=== PATIENT | male | born 1945 | race Caucasian/White ===

== ENCOUNTER 2017-02-24 20:55 | Emergency (ER) | payer MEDICARE, OTHER ==
[2017-02-24 23:16] LABS: APPEARANCE CLOUDY (CLEAR); BILIRUBIN NEGATIVE (NEGATIVE); COLOR RED (YELLOW); GLUCOSE NEGATIVE (NEGATIVE); KETONE NEGATIVE (NEGATIVE); NITRITE NEGATIVE (NEGATIVE); PROTEIN 2+ mg/dL (NEGATIVE); SPECIFIC GRAVITY 1.015 (1.005-1.020); UROBILINOGEN NORMAL (NORMAL)
[2017-02-24 23:19] LABS: BACTERIA MODERATE /hpf (NONE SEEN); EPITHELIAL CELLS 0-5 /hpf (0-5); RED CELLS - URINE >50 /hpf (0-5)
== END 2017-02-25 00:08 | disposition home or self-care (01) ==
LOC: D.ER 20:55
PROVIDERS: Emergency Medicine
DX: R31.9 Hematuria, unspecified (principal); N39.0 Urinary tract infection, site not specified; R33.9 Retention of urine, unspecified; N40.0 Benign prostatic hyperplasia without lower urinary tract symptoms; F17.200 Nicotine dependence, unspecified, uncomplicated

== ENCOUNTER 2017-02-28 23:52 | Emergency (ER) | payer MEDICARE, OTHER | END 2017-03-01 01:45 | disposition home or self-care (01) | LOC: D.ER 23:52 | DX: R33.9 Retention of urine, unspecified (principal); F17.200 Nicotine dependence, unspecified, uncomplicated ==

== ENCOUNTER 2017-04-01 19:55 | Emergency (ER) | payer MEDICARE, OTHER ==
[2017-04-01 22:20] LABS: APPEARANCE CLOUDY (CLEAR); BILIRUBIN NEGATIVE (NEGATIVE); COLOR RED (YELLOW); GLUCOSE NEGATIVE (NEGATIVE); KETONE NEGATIVE (NEGATIVE); NITRITE NEGATIVE (NEGATIVE); PROTEIN NEGATIVE (NEGATIVE); SPECIFIC GRAVITY 1.005 (1.005-1.020); UROBILINOGEN NORMAL (NORMAL)
[2017-04-01 22:21] LABS: BACTERIA MANY /hpf (NONE SEEN); RED CELLS - URINE >50 /hpf (0-5)
== END 2017-04-01 22:36 | disposition home or self-care (01) ==
LOC: D.ER 19:55
PROVIDERS: Family Medicine
DX: N39.0 Urinary tract infection, site not specified (principal); R33.9 Retention of urine, unspecified; F17.200 Nicotine dependence, unspecified, uncomplicated; I10 Essential (primary) hypertension

== ENCOUNTER 2018-08-08 19:42 | Emergency (ER) | payer MEDICARE, OTHER ==
[~2018-08-08] VITALS: Ht 182.9 cm; Wt 64.5 kg
[2018-08-08 19:48] VITALS: Ht 182.9 cm; Wt 64.5 kg
[2018-08-08] MEDS ORDERED: CIPRO500 MG PO (21:47)
[2018-08-08] MEDS ORDERED: HYDROCODON-ACE1 EAC7 PO (22:39)
[2018-08-08 23:05] VITALS: BP 140/73
== END 2018-08-08 23:05 | disposition home or self-care (01) ==
LOC: D.ER 19:42
DX: N30.90 Cystitis, unspecified without hematuria (principal); T83.018A Breakdown (mechanical) of other urinary catheter, initial encounter

== ENCOUNTER 2018-09-07 06:12 | Inpatient (IN) | payer MEDICARE, OTHER ==
[2018-09-07] VITALS (13 sets, daily range): BP systolic 77–158; BP diastolic 54–98; Ht 182.9 cm; Wt 61.6 kg
[~2018-09-07] VITALS: Ht 182.9 cm; Wt 61.6 kg
--- NOTE | ~2018-09-07 | OP ---
PATIENT NAME: MAE MANN MEDICAL RECORD: [id number] :49 LOCATION:D[id number] ADMISSION DATE:09/07/18 SURGEON: SYLVIA ROBERTSON MD DATE OF OPERATION: 09/09/2018 PREOPERATIVE DIAGNOSES: 1. Huge prostate causing urethral obstruction. 2. Very large bladder containing clots. 3. Liver lesions. Rule out a malignancy. POSTOPERATIVE DIAGNOSES: 1. Huge prostate causing urethral obstruction. 2. Very large bladder containing clots. 3. Liver lesions. Rule out a malignancy. PROCEDURES: I assisted Dr. Lopez with the laparotomy, placement of the suprapubic catheter for continuous bladder irrigation, and the prostate biopsies. I was the surgeon when it came to the subtotal omentectomy and the core biopsies of the liver lesions. My involvement in the portion of the operation that I assisted Dr. Lopez included some retraction, some sharp dissection into the abdomen, manipulation of tissues, removal of some of the clots after the cystotomy was performed, and some suturing. I did perform some core biopsies of the prostate on the left side of the prostate as well as on the prostate superiorly, under Dr. Lopez's instruction. My portion of the operation where I was the operative surgeon includes subtotal omentectomy as well as core biopsies of the liver. I was able to mobilize the right lobe of the liver with my hand. I identified one liver lesion on the convexity of the liver, which appeared to be amenable to core biopsies. The 14-gauge core biopsies were obtained. Numerous biopsies were obtained. The biopsy sites were made hemostatic with electrocautery. No surrounding structures were injured. We have been asked to perform an omentectomy as well as it appeared that the patient has metastatic disease and wanted to prevent omental caking in the future. Additionally, the omentum may contain malignancy; therefore, it needs to be evaluated by the pathologist. I took the SuperJaw EnSeal device and I used this sequentially to take the omentum off of the transverse colon. There was very little bleeding. I would say that I removed about 85% of the omentum during this omentectomy. There was no damage to the colon. I then assisted Dr. Lopez in the closure of the abdomen as well as placement of a drain and placement of a suprapubic catheter. TRANSINT:[id number] Voice Confirmation ID: [id number] DOCUMENT ID: [id number] OPERATIVE REPORT [id number] MAE MANN ROBERT MD CC: SYLVIA LOPEZ MD [id number] DICTATION DATE: 09/25/18 175 FIELD MECHANIC/SITE LEAD: 09/25/18 190 DIS IN 09/23/18 [facility] [address] [place] [id number]
[~2018-09-07 06:12] MED LIST: CIPRO500 MG PO; HYDROCODON-ACE1 EAC7 PO
--- NOTE | 2018-09-07 07:05 | NUR ---
DR. FUENTES NOTIFIED OF LACK OF URINE, LANDRUM CATH CHANGED, 14F LANDRUM INSERTED.
--- NOTE | 2018-09-07 07:06 | NUR ---
REPORT GIVEN TO NORMA MONROY.
[2018-09-07 07:48] LABS: BASOPHILS 0.3 % (0-2); EOSINOPHILS 0.8 % (0-7); HEMATOCRIT 36.5 % (42.0-54.0); HEMOGLOBIN 12.3 g/dL (13.5-17.5); IMMATURE GRANULOCYTES 0.1 % (0-5); MCH 30.1 pg (26.0-34.0); MCHC 33.7 g/dL (31.0-37.0); MCV 89.5 fL (80.0-100.0); MEAN PLATELET VOLUME 10.2 fL (7.4-10.4); MONOCYTES 4.3 % (2-11); NEUTROPHILS 80.5 % (40-80); PLATELET COUNT 188 10x3/uL (130-400); RBC 4.08 10x6/uL (4.20-6.10); RDW 15.2 % (11.5-14.5); WBC 9.3 10x3/uL (4.8-10.8)
[2018-09-07 08:10] LABS: INR 1.07 (0.85-1.17); PROTIME 13.4 SECONDS (11.6-15.0)
[2018-09-07 08:11] LABS: ALBUMIN 2.8 g/dL (3.4-5.0); ALKALINE PHOSPHATASE 73 U/L (46-116); ALT (SGPT) 19 U/L (10-68); BILIRUBIN - TOTAL 0.33 mg/dL (0.2-1.3); CALC OSMOLALITY 290 mosm/kg (275-300); CALCIUM 8.8 mg/dL (8.5-10.1); CARBON DIOXIDE 22.9 mmol/L (21.0-32.0); CHLORIDE - SERUM 106 mmol/L (98-107); CREATININE - SERUM 1.9 mg/dL (0.6-1.3); GLUCOSE 139 mg/dL (74-106); PROTEIN - SERUM 6.4 g/dL (6.4-8.2); SODIUM 142 mmol/L (136-145); UREA NITROGEN 28 mg/dL (7-18); eGFR NON AFRICAN AMERICAN 37 mL/min (90-120)
[2018-09-07 08:18] LABS: APTT 23.5 SECONDS (22.8-39.4)
[2018-09-07 08:24] LABS: CKMB 1.7 U/L (0.0-3.6); CREATINE KINASE 107 UL (21-232)
[2018-09-07 08:25] LABS: TROPONIN-I < 0.017 ng/mL (0.000-0.060)
--- NOTE | 2018-09-07 10:16 | NUR ---
MULTIPLE ATTEMPTS TO MANUALLY IRRIGATE BLADDER UNSUCCESSFUL. PT CONTINUES IN PAIN D/T DISTENDED BLADDER. CBI SUPPLIES REQUESTED FORM CENTRAL SUPPLY. DR. LOPEZ CONTACTED. PLAN TO TAKE PT FOR CYSTOSCOPY IF WE ARE UNABLE TO DRAIN BLADDER. REPORT CALLED TO ICU, SIDEROGRAPHIST AWARE OF NEED FOR CBI ET IF UNSUCCESSFULL, PLAN FOR CYSTOSCOPY.
--- NOTE | 2018-09-07 10:45 | NUR ---
PT ARRIVED ON UNIT VS STATED HR 111, BP 158/97 RR 48 COPIOUS AMOUNTS OF BLOOD IN URINE NOTED. DR LOPEZ PAGED GIVEN UPDATE, STATED PT WOULD HAVE TO WAIT UNTIL OR TIME IS AVAILABLE THIS EVENING.
--- NOTE | 2018-09-07 11:00 | NUR ---
U/S AT BEDSIDE. DR MARX AT BEDSIDE GIVEN UDPATE. NEW ORDERS RECEIVED.
[2018-09-07 11:17] LABS: % SATURATION 19 % (15-55); IRON 55 ug/dl (35-150); TOTAL IRON BIND CAPACITY 278 ug/dl (260-445); UNSAT IRON BIND CAPACITY 223 ug/dl (150-375)
--- NOTE | 2018-09-07 11:20 | NUR ---
DR LOPEZ AT BEDSIDE. NEW ORDERS RECEIVED
--- NOTE | 2018-09-07 11:40 | NUR ---
ANESTHESIA AT BEDSIDE GIVEN UDPATE. PT TO OR AT THIS TIME.
--- NOTE | 2018-09-07 12:10 | NUR ---
VIKKI CALLED GIVEN UPDATE
--- NOTE | 2018-09-07 13:37 | NUR ---
300CC OF BLOODY DRAINAGE TO LANDRUM BAG ON ADMIT
--- NOTE | 2018-09-07 13:48 | OP ---
PATIENT NAME: MAE MANN MEDICAL RECORD: [id number] :49 LOCATION:[facility] D.2304 ADMISSION DATE:09/07/18 SURGEON: AL LOPEZ MD DATE OF OPERATION: 09/07/2018 SURGEON: Al Lopez MD ANESTHESIA: TIVA by Consuelo Porras CRNA DIAGNOSES: Urinary retention with bilateral hydronephrosis and acute renal failure. Massively enlarged prostate with possible prostate cancer, metastatic cancer in the liver. PROCEDURES: Cystoscopy, 18-Moldovan suprapubic tube insertion under ultrasound guidance, and bladder clot evacuation. FINDINGS: On cystoscopy, massive prostate with multiple false passages. Unable to find the urethral lumen. Massively enlarged prostate, fills out most of the pelvis. The bladder was displaced up to the umbilical level. Large numbers of blood clots filling the bladder. ESTIMATED BLOOD LOSS: Minimal. CLINICAL HISTORY: This is a 72-year-old male who came through the Emergency Room with acute pain from being unable to void. He was found to have acute renal failure with creatinine of 1.9. CT scan showed bilateral hydroureteronephrosis with massively enlarged prostate. The ER nurses attempted to place a Forde catheter. Ultrasound in the intensive care unit showed that the Forde catheter balloon was actually within the prostate. I therefore asked that the Forde catheter that was placed in the Emergency Room be removed. He will be brought to the OR for an attempt at cystoscopy to get a catheter in the patient. He was already given vancomycin and meropenem in the Emergency Room. No further antibiotics were given to the patient here. DESCRIPTION OF PROCEDURE: The patient was given IV sedation. He was then placed into the lithotomy position. A 21-Moldovan cystoscope with 30-degree lens was used for visualization. No urethral strictures were seen. The prostatic urethra shows multiple false passages. I can see an indentation in the mid prostatic urethra, where the Forde balloon had been inflated. Beyond this, there were multiple false passages and cross healing. I attempted with a guidewire to find the true lumen, but I was unsuccessful at finding the true lumen. I decided to abandon further attempts at cystoscopy and insert a suprapubic catheter. Initially, I landmarked 2 fingerbreadths above the symphysis pubis and then placed the trocar for the suprapubic tube. I could not find the bladder. After few attempts at this including attempts to put contrast down to find the bladder, and using fluoroscopy, I asked for ultrasound. Ultrasonography revealed that the bladder was displaced cranially by quite a significant amount as most of the pelvis was filled with his massive prostate. In fact, the ideal location for inserting the tube was actually just superior to the umbilicus. At this point, a small stab incision was made and the trocar was placed in under direct ultrasound vision. I could verify that the trocar tip was actually within the bladder under ultrasound. The sheath was left in while the trocar itself was removed. An 18-Moldovan catheter was then inserted into the bladder and the balloon was inflated under ultrasound vision. Large mobile clots were seen within the bladder. The catheter was put to the [place] OPERATIVE REPORT [id number] MAE MANN and we suctioned out most of the blood clots. I also put in bladder irrigation with normal saline using a catheter tip syringe for about 200 mL and then suctioned out more clots. This process was repeated about 5 or 6 times until virtually all the clots were evacuated from the bladder. I will repeat an ultrasound to see if there is persistent hydronephrosis after drainage of the bladder. If the hydronephrosis persists, then he will need bilateral nephrostomy tubes. TRANSINT:[id number] Voice Confirmation ID: [id number] DOCUMENT ID: [id number] AL LOPEZ MD at 1348 CC: [id number] DICTATION DATE: 09/07/18 1321 LOGISTICS LEAD: 09/07/18 1338 ADM IN [facility] [address] [place] [address]
--- NOTE | 2018-09-07 14:20 | NUR ---
PT BACK FROM OR VSS. LANDRUM TO GRAVITY. VIKKI AT BEDSIDE GIVEN UDPATE.
--- NOTE | 2018-09-07 17:40 | NUR ---
PT HR 35 BP 70/54 STERNAL RUB ADM PT HR BACK UP ALERT ORIENTED STAT H&H ORDERED BLOOD SUGAR ADM 145 BLADDER SCAN ADM [address] LOPEZ CALLED GIVEN UPDATE. STATED TO IRRIGATE LANDRUM AT THIS TIME BLADDER SCANNER WOULD NOT BE ACCURATE.
--- NOTE | 2018-09-07 18:10 | NUR ---
STAT h8h READ BACK DR LOPEZ CALLED GIVEN UPDATE 2 U PRBC ORDERED.
--- NOTE | 2018-09-07 18:20 | NUR ---
DR MARX CALLED GIVEN UPDATE. NEW ORDERS RECEIVED. WILL ADM.
[2018-09-07 18:28] LABS: HEMATOCRIT 26.7 % (42.0-54.0); HEMOGLOBIN 8.9 g/dL (13.5-17.5)
--- NOTE | 2018-09-07 18:40 | NUR ---
LOGAN GORDON AT BEDSIDE ASSIST WITH LANDRUM IRRIGATION. MULTIPLE CLOTS NOTED. MINIMAL RETURN FROM FLUSH NOTED.
[2018-09-07 19:31] LABS: HEMATOCRIT 24.5 % (42.0-54.0); HEMOGLOBIN 8.1 g/dL (13.5-17.5)
--- NOTE | 2018-09-07 19:40 | NUR ---
PT RECEIVED WITH FAMILY AT BEDSIDE. SUPRA PUBIC CATHETER DRAINING BLOOD AND DR AWARE. VSS. WILL CONTINUE TO OBSERVE.
[2018-09-07 19:49] LABS: APTT 24.2 SECONDS (22.8-39.4); INR 1.25 (0.85-1.17); PROTIME 15.1 SECONDS (11.6-15.0)
--- NOTE | 2018-09-07 21:10 | NUR ---
PT OUT TO CT AND RETURNED TO UNIT. CT OF PELVIS AND ABDOMEN. PT TRANSFERRED TO CT TABLE AND BACK TO BED WITHOUT DIFFICULTY OR COMPLAINTS. DR ROBERTSON LOOKING AT RESULTS AND PT LEAVING RETURNING TO ICU. LANDRUM FLUSHED WITHONLY FLUSH RETURNED WITH BLOOD SLOWLY DRAINING. FREQUENT FLUSHING NEEDED.
--- NOTE | 2018-09-07 23:15 | NUR ---
REASSESSMENT COMPLETED, SEE FLOW SHEET. LANDRUM FLUSHED. WILL CONTINUE TO OBSERVE.
[2018-09-08] VITALS (27 sets, daily range): BP systolic 88–162; BP diastolic 51–90
--- NOTE | 2018-09-08 02:05 | NUR ---
DR LOPEZ INFORMED OF PT STATUS. ORDER RECEIVED FOR PAIN MED. PT IN PAIN 12/29. WILL TAKE TO OR IN MORNING.
--- NOTE | 2018-09-08 03:55 | NUR ---
REASSESSMENT COMPLETED, SEE FLOW SHEET. PT RESTING WITH EYES CLOSED, EASILY AWOKEN TO VERBAL STIMULI. WILL CONTINUE TO OBSERVE.
[2018-09-08 04:32] LABS: BASOPHILS 0.1 % (0-2); EOSINOPHILS 0 % (0-7); IMMATURE GRANULOCYTES 0.2 % (0-5); LYMPHOCYTES 4.7 % (15-50); MCH 30.2 pg (26.0-34.0); MCHC 33.6 g/dL (31.0-37.0); MCV 89.7 fL (80.0-100.0); MEAN PLATELET VOLUME 10.2 fL (7.4-10.4); MONOCYTES 5.5 % (2-11); NEUTROPHILS 89.5 % (40-80); PLATELET COUNT 156 10x3/uL (130-400); RBC 3.58 10x6/uL (4.20-6.10); RDW 14.7 % (11.5-14.5)
[2018-09-08 04:53] LABS: ALBUMIN 2.4 g/dL (3.4-5.0); ALKALINE PHOSPHATASE 56 U/L (46-116); ALT (SGPT) 19 U/L (10-68); BILIRUBIN - TOTAL 0.43 mg/dL (0.2-1.3); CALC OSMOLALITY 291 mosm/kg (275-300); CALCIUM 7.9 mg/dL (8.5-10.1); CHLORIDE - SERUM 109 mmol/L (98-107); GLUCOSE 132 mg/dL (74-106); MAGNESIUM - SERUM 1.8 mg/dL (1.8-2.4); PHOSPHOROUS 4.6 mg/dL (2.5-4.9); PROTEIN - SERUM 5.3 g/dL (6.4-8.2); SODIUM 142 mmol/L (136-145); TROPONIN-I < 0.017 ng/mL (0.000-0.060); UREA NITROGEN 33 mg/dL (7-18)
[2018-09-08 04:54] LABS: HEMOGLOBIN 10.8 g/dL (13.5-17.5); WBC 12.3 10x3/uL (4.8-10.8)
[2018-09-08 04:55] LABS: HEMATOCRIT 32.1 % (42.0-54.0)
[2018-09-08 04:56] LABS: CREATININE - SERUM 2.8 mg/dL (0.6-1.3); POTASSIUM - SERUM 5.6 mmol/L (3.5-5.1); eGFR NON AFRICAN AMERICAN 24 mL/min (90-120)
[2018-09-08 05:00] LABS: INR 1.18 (0.85-1.17); PROTIME 14.5 SECONDS (11.6-15.0)
--- NOTE | 2018-09-08 07:00 | NUR ---
SHIFT ASSESSMENT COMPLETED. PT CARE ASSUMED. MONITORS ON AND WORKING, VITALS STABLE, NO SIGNS/SYMPTOMS OF PAIN OR DISCOMFORT NOTED AT THIS TIME, PT AWAKE AND ALERT, SEE FLOW SHEET FOR FURTHER OPTIONS, WILL CONITNUE TO OBSERVE.
--- NOTE | 2018-09-08 09:00 | NUR ---
FAMILY AT BEDSIDE, UPDATE PROVIDED, PT AWAKE AND ALERT, NO SIGNS/SYMPTOMS OF PAIN OR DISCOMFORT NOTED AT THIS TIME, CALL LIGHT WITHIN REACH, MONITORS ON AND WORKING, VITALS STABLE, NO SIGNS/SYMPTOMS OF PAIN OR DISCOMFORT NOTED AT THIS TIME, WILL CONTINUE TO OBSERVE.
--- NOTE | 2018-09-08 11:00 | NUR ---
PT AWAKE AND ALERT, IRRIGATE SUPRA PUBIC CATH OFTEN PER DR LOPEZ.MONITORS ON AND WORKING, VITALS STABLE, NO SIGNS/SYMPTOMS OF PAIN OR DISCOMFORT NOTED AT THIS TIME, CALL LIGHT WITHIN REACH, SEE FLOW SHEET FOR FURTHER DETIALS, WILL CONTINUE TO OBSERVE.
--- NOTE | 2018-09-08 13:00 | NUR ---
FAMILY AT BEDSIDE, UPDATE PROVIDED, NO SIGNS/SYMPTOMS OF PAIN OR DISCOMFORT NOTED AT THIS TIME, WILL CONTINUE TO OBSERVE.
--- NOTE | 2018-09-08 15:00 | NUR ---
MONITORS ON AND WORKING, CONTINUE TO IRRIGATE LANDRUM OFTEN PER DR LOPEZ. CALL LIGHT WITHIN REACH, SEE FLOW SHEET FOR FURTHER DETAILS. WILL CONTINUE TO OBSERVE.
[2018-09-08 16:09] LABS: FOLATE (FOLIC ACID) - SERUM 8.8 ng/mL (>3.0)
[2018-09-08 16:48] LABS: HEMOGLOBIN 8.5 g/dL (13.5-17.5)
[2018-09-08 16:49] LABS: HEMATOCRIT 24.8 % (42.0-54.0)
--- NOTE | 2018-09-08 17:00 | NUR ---
DR LOPEZ AT BEDSIDE SPEAKING WITH PT AND FAMILY. PT COMPLAINING OF PAIN, PRN DILAUDED GIVEN. LANDRUM IRRIGATED, MONITORS ON AND WORKING, VITALS STABLE. WILL CONTINUE TO OBSERVE.
--- NOTE | 2018-09-08 19:00 | NUR ---
ASSESSMENT COMPLETED PER FLOWSHEETS. PT A/O X4, C/O PAIN TO ABD 4 ON SCALE FROM 0 TO 10, ST ON CM WITH HR AT 113, 1ST UNIT OF PRBC TRANSFUSING WITHOUT ANY S/S OF TRANSFUSION REACTION. SUPRAPUBIC CATH TO GRAVITY WITH BLOODY DRAINAGE . LANDRUM IRRIGATED WITH STERILE NS PER ORDER. PT CHANTE WELL. CLOTS RETURNS TO DRAINAGE. PPP. WILL CONT TO MONITOR.
--- NOTE | 2018-09-08 19:17 | MORECARE ---
CASE MANAGEMENT DISCHARGE SUMMARY PATIENT: MAE MANN UNIT: [id number] ADM DATE: 09/07/18 AGE: 72 : [birth year] SEX: M ROOM/BED: D.2304 AUTHOR: HARMAN,DOC PHYSICIAN: REFERRING PHYSICIAN: CHELSIE MARX MD DATE OF SERVICE: 09/08/18 Discharge Plan Patient Name: MAE MANN Facility: [facility]:[place] : 1945 Planned Disposition: Home Anticipated Discharge Date: Discharge Date: Expected LOS: Initial Reviewer: [email or web address] Initial Review Date: 09/07/2018 Generated: 09/08/18 8:17 pm Comments DCP- Discharge Planning Updated by [id number]: Elizabeth Sandy on 09/08/18 6:[address] Patient Name: MAE MANN Admission Status: ER Accout number: [id number] Admission Date: 09-07-2018 : 1945 Admission Diagnosis: Attending: CHELSIE MARX Current LOS: 1 Anticipated DC Date: Planned Disposition: Home Primary Insurance: MEDICARE A & B Discharge Planning Comments: CM met with patient at bedside after explaining CM role and obtaining verbal consent. Patient lives at home with his Vikki and plans to return there upon discharge. Patient feels this would be a safe discharge. CM discussed availability / needs of home health and medical equipment. Patient denies any discharge needs at this time. Patient states he will have his drive him home upon discharge. CM will continue to follow and assist as needed with discharge planning / needs. Shop Clerk: Elizabeth Sandy DCP- Discharge Planning Updated by [email or web address]: Elizabeth Sandy on 09/07/18 4:[address] CM attempted to see patient for discharge planning but patient is currently in OR no family available at this time. CM will continue to follow and assist as needed with discharge planning / needs. DCPIA - Discharge Planning Initial Assessment Updated by [id number]: Elizabeth Sandy on 09/08/18 7:14 pm * Is the patient Alert and Oriented? Yes * How many steps to enter\exit or inside your home? * PCP FRANKY ANTONIO APN * Pharmacy [facility] * Preadmission Environment Home with Family * ADLs Independent * Equipment None * List name and contact numbers for known caregivers / representatives who currently or will assist patient after discharge: VIKKI MANN - - [phone] * Verbal permission to speak to the caregivers and representatives has been obtained from the patient. N/A * Community resources currently utilized None * Additional services required to return to the preadmission environment? No * Can the patient safely return to the preadmission environment? Yes * Has this patient been hospitalized within the prior 30 days at any hospital? No Patient Name: MAE MANN Page [phone] at 191 All edits/amendments must be made on the electronic document DICTATION DATE: 09/08/181916 CORDWOOD CUTTER HELPER: SRINIVAS 09/08/181916 RPT#: [id number] DC DATE: STATUS: ADM IN [facility] [address] [place] [address] END OF REPORT
[2018-09-08 20:48] LABS: INR 1.35 (0.85-1.17); PROTIME 16.1 SECONDS (11.6-15.0)
--- NOTE | 2018-09-08 21:00 | NUR ---
1ST PRBC CONT TO TRANSFUSING, NO S/S OF REACTION NOTED. VSS.
--- NOTE | 2018-09-08 23:00 | NUR ---
REASSESSMENT COMPLETED PER FLOWSHEETS. PT C/O PAIN, PAIN MED GIVEN PER ORDER. NO ACUTE CHANGES NOTED IN PT'S STATUS AT THIS TIME. REPOSITIONED FOR COMFORT. IRRIGATED CATH PER PT'S. REQUEST. CHANTE WELL. BLOOD CLOTS RETURNING NOTED. WILL CONT TO MONITOR.
[2018-09-09] VITALS (30 sets, daily range): BP systolic 95–199; BP diastolic 50–105
--- NOTE | 2018-09-09 01:00 | NUR ---
PT RESTING QUIETLY WITHOUT DISTRESS. 2ND PRBC CONT TRANSFUSING. NO S/S OF TRANSFUSION NOTED. VSS.
--- NOTE | 2018-09-09 03:00 | NUR ---
REASSESSMENT COMPLETED PER FLOWSHEETS. VSS.
[2018-09-09 05:23] LABS: HEMATOCRIT 28.5 % (42.0-54.0); HEMOGLOBIN 9.5 g/dL (13.5-17.5); MCH 30.4 pg (26.0-34.0); MCHC 33.3 g/dL (31.0-37.0); MCV 91.1 fL (80.0-100.0); MEAN PLATELET VOLUME 10.3 fL (7.4-10.4); PLATELET COUNT 148 10x3/uL (130-400); RBC 3.13 10x6/uL (4.20-6.10); RDW 15.5 % (11.5-14.5); WBC 21.3 10x3/uL (4.8-10.8)
[2018-09-09 05:32] LABS: CALCIUM 8.2 mg/dL (8.5-10.1)
[2018-09-09 05:38] LABS: CREATININE - SERUM 4.2 mg/dL (0.6-1.3)
[2018-09-09 05:45] LABS: EOSINOPHILS 1 % (0-7); LYMPHOCYTES 5 % (15-50); MONOCYTES 9 % (2-11); NEUTROPHILS 85 % (40-80)
[2018-09-09 05:46] LABS: PLATELET ESTIMATE NORMAL
--- NOTE | 2018-09-09 06:00 | NUR ---
BATH GIVEN. LINEN CHANGED. ABD DRESSING CHANGED. CATH IRRIGATED. PT CHANTE WELL.VSS.
--- NOTE | 2018-09-09 07:30 | NUR ---
REPORT RECEIVED. PT RESTING QUIETLY. HAS SUPRAPUBIC CATH WITH NOTED BLOODY URINE AND CLOTS. DRESSING TO ABD. VSS. O2 AT 3L. PT IS NPO FOR PROCEDURE TODAY. BED IN LOWEST POSITION. SIDE RAILS UP X2. CALL LIGHT IN REACH.
--- NOTE | 2018-09-09 08:30 | NUR ---
IRRIGATED SUPRAPUBIC CATH WITH 40ML OF WATER. PULLED BACK CLOTS AND BLOOD (ABOUT 60ML). PT STATED HE FELT INSTANT RELIEF. WILL CONTINUE TO MONITOR.
--- NOTE | 2018-09-09 09:24 | NUR ---
UPDATED FAMILY AT BEDSIDE. VSS. PT DENIES PAIN. VANC INFUSING AT THIS TIME. NO OTHER NEEDS AT THIS TIME.
--- NOTE | 2018-09-09 10:01 | NUR ---
NUTRITION F//U PT REMAINS NPO AT THIS TIME. S/P PROCEDURE. WILL PROVIDE DIET WHEN RESUMED, MONITOR PO INTAKE. RD FOLLOWING
--- NOTE | 2018-09-09 11:15 | NUR ---
22 GAUGE IV PLACED TO LEFT HAND AND 20 GAUGE PLACED TO RIGHT UPPER ARM BY VASCULAR ACCESS NURSE, PATIENCE. CALLED SURGERY FOR UPDATE FOR WHEN PT WOULD HAVE HIS SURGERY. STATED THAT DR LOPEZ WAS STILL WORKING ON HIS 1ST CASE AND THAT MR MACKENZIE WAS NEXT ON HIS LIST. UPDATED PT AND HIS .
--- NOTE | 2018-09-09 13:12 | NUR ---
IRRIGATED SUPRAPUBIC CATH WITH 60ML OF WATER. GOT ABOUT 90ML OF BLOODY URINE AND CLOTS IN RETURN.
--- NOTE | 2018-09-09 13:42 | NUR ---
NURSE SUPERVISOR VENEER IN SPEAKING WITH PT AND FAMILY. PUTTING IN PREOP ORDERS AND MEDS.
--- NOTE | 2018-09-09 15:39 | NUR ---
LEFT CVL PLACED BY DR ALLRED. 2MG OF VERSED GIVEN PER ORDER. CHEST XRAY ORDERED.
--- NOTE | 2018-09-09 17:25 | NUR ---
PT TAKEN DOWN TO OR FOR SURGERY.
--- NOTE | 2018-09-09 19:45 | NUR ---
REC'D PT FROM OR BACK TO ROOM 2304 ACCOMPANIED BY OR STAFF, PT ON VENT VIA 8.0 ETT TAPED @ 22CM LIPLINE SEE FLOWSHEET FOR VENT SETTINGS, PT SEDATED ON VENT, BILAT SOFT WRIST RESTRAINTS APPLIED, LEFT HAND PIV SALINE LOCKED, LEFT DLSCL DRSG CDI SALINE LOCKED, LEFT NARE NGT SECURED WITH NGT MCKINLEY AND PLACED TO LIWS, CM-SR, RIGHT UPPER ARM PIV WITH LR @ 10CC/HR, ABDOMINAL DRSG CDI, LEFT UPPER ABD RADHA DRAIN COMPRESSED WITH SANGUINOUS DRAINAGE, SUPRAPUBIC CATH WITH LANDRUM IRRIGATION OF NS, PPP, BILAT SOFT WRIST RESTRAINTS APPLIED, SR UP X 2, VISIBLE TO NURSES STATION.
--- NOTE | 2018-09-09 20:15 | NUR ---
DR. LOPEZ AT , NO NEW ORDERS AT THIS TIME.
--- NOTE | 2018-09-09 20:20 | NUR ---
DR. JAIRO HOFFMAN FOR CONSULT.
--- NOTE | 2018-09-09 20:30 | NUR ---
PT'S PHONED FOR UPDATE, UPDATE PROVIDED AND QUESTIONS ANSWERED.
--- NOTE | 2018-09-09 20:35 | NUR ---
SPOKE WITH DR. GILL REGARDING CONSULT, NEW ORDERS REC'D AND PLACED IN COMPUTER.
--- NOTE | 2018-09-09 20:50 | NUR ---
FENTANYL PLACED TO RIGHT UPPER ARM PIV @ 25MCG/HR, LR INCREASED TO 125CC/HR PER ORDER, PT RESTING EYES CLOSED, BP ELEVATED, WILL MONITOR CLOSELY FOR CHANGES.
--- NOTE | 2018-09-09 21:30 | NUR ---
CM- UCAF NOTED ON MONITOR AT A RATE OF 154, PT AWAKE ATTEMPTING TO TALK AROUND ETT, EXPLAINED TO PT HE COULD ONLY NOD HEAD YES AND NO, RESP RATE 27, DIPRIVAN BEGUN @ 15MCG/KG/MIN AND FENTANYL INCREASED TO 50MCG/HR, BP TRENDING DOWN, WILL MONITOR CLOSELY FOR CHANGES.
--- NOTE | 2018-09-09 21:50 | NUR ---
RHYTHM CHANGE NOTED ON MONITOR PT NOW ST @ 120, BP 156/78
--- NOTE | 2018-09-09 21:55 | NUR ---
LOGAN CHAVEZ APN FOR DR. MARX ON UNIT, INFORMED OF BRIEF RHYTHM CHANGE AND CONVERSION BACK TO ST @ 120, NO NEW ORDERS REC'D AT THIS TIME.
--- NOTE | 2018-09-09 23:30 | NUR ---
REASSESSMENT COMPLETED, PT RESTING EYES CLOSED ON VENT, VSS, CM-SR @ 85, LANDRUM IRRIGATION CONTINUES WITHOUT DIFFICULTY, WILL MONITOR CLOSELY FOR CHANGES.
[2018-09-10] VITALS (25 sets, daily range): BP systolic 97–164; BP diastolic 58–87
--- NOTE | 2018-09-10 02:00 | NUR ---
PT RESTLESS IN BED WHEN ASKED IF HURTING NODS HEAD YES, 2MG DILAUDID GIVEN SLOW IVP FOR PAIN, BP 124/77, REMAINS VISIBLE TO NURSES STATION.
--- NOTE | 2018-09-10 04:00 | NUR ---
PT RESTING EYES CLOSED, VSS, WILL CONTINUE TO MONITOR CLOSELY FOR CHANGES.
--- NOTE | 2018-09-10 05:15 | NUR ---
AM LAB DRAWN AND SENT TO LAB FROM [facility]
--- NOTE | 2018-09-10 05:45 | NUR ---
DISCREPANCY IN YESTERDAYS LAB VALUES, AM LAB REDRAWN AND SENT TO LAB.
[2018-09-10 06:01] LABS: BASOPHILS 0 % (0-2); EOSINOPHILS 0.1 % (0-7); IMMATURE GRANULOCYTES 0.3 % (0-5); LYMPHOCYTES 6.9 % (15-50); MCH 30.1 pg (26.0-34.0); MCHC 33.9 g/dL (31.0-37.0); MEAN PLATELET VOLUME 9.4 fL (7.4-10.4); MONOCYTES 6.1 % (2-11); NEUTROPHILS 86.6 % (40-80); PLATELET COUNT 119 10x3/uL (130-400); RDW 15.2 % (11.5-14.5)
[2018-09-10 06:03] LABS: MCV 88.8 fL (80.0-100.0); WBC 11.2 10x3/uL (4.8-10.8)
[2018-09-10 06:04] LABS: HEMATOCRIT 17.4 % (42.0-54.0); HEMOGLOBIN 5.9 g/dL (13.5-17.5); RBC 1.96 10x6/uL (4.20-6.10)
--- NOTE | 2018-09-10 06:15 | NUR ---
DR. LOPEZ CALLED REGARDING LAB VALUES, NEW ORDERS REC'D.
[2018-09-10 06:21] LABS: ALBUMIN 1.6 g/dL (3.4-5.0); ANION GAP 11.8 mmol/L (8-16); BILIRUBIN - TOTAL 0.25 mg/dL (0.2-1.3); CALCIUM 7.4 mg/dL (8.5-10.1); CARBON DIOXIDE 24.9 mmol/L (21.0-32.0); POTASSIUM - SERUM 4.7 mmol/L (3.5-5.1); PROTEIN - SERUM 4.4 g/dL (6.4-8.2)
[2018-09-10 06:23] LABS: CREATININE - SERUM 2.9 mg/dL (0.6-1.3)
--- NOTE | 2018-09-10 06:35 | NUR ---
1ST UNIT PRBC BEGUN AT THIS TIME VIA LDLSCL, BP STABLE, WILL REPORT TO ONCOMING SHIFT
--- NOTE | 2018-09-10 07:00 | NUR ---
REC'D SEDATED W/ PROPOFOL/ FENTANYL ON VENT. OPENS EYES SPONTANEOUSLY. ASSESSED.
--- NOTE | 2018-09-10 09:15 | NUR ---
FAMILY IN AND UPDATED. TO RADIOLOGY FOR CHEST CT.
--- NOTE | 2018-09-10 09:25 | NUR ---
50 MCG FENTANYL BOLUS PER LAGGING MACHINE OPERATOR D/T INCREASED INCISIONAL PAIN AFTER MOVING TO AND FROM CT TABLE.
--- NOTE | 2018-09-10 09:40 | NUR ---
[facility] B+ #[phone] STARTED. DOING WELL OFF SEDATION. PAIN LESS NOW.
--- NOTE | 2018-09-10 10:00 | NUR ---
DR JULIAN CAMACHO- ORDERS REC'D.
--- NOTE | 2018-09-10 10:35 | NUR ---
DR GILL IN AGAIN- WILL DO PS TRIAL- RT INFORMED.
--- NOTE | 2018-09-10 11:00 | NUR ---
REASSESSED. RESTING WELL OFF SEDATION. C/O GAS PAINS. ASSISTED IN REPOSITIONING.
--- NOTE | 2018-09-10 11:45 | NUR ---
EXTUBATED PER RT AFTER SHORT PS TRIAL. INSTRUCTED S/S TO REPORT. ENC TO NOT TALK. RESTRAINTS REMOVED.
--- NOTE | 2018-09-10 12:06 | NUR ---
AT BEDSIDE. TAKING ICE CHIPS.
--- NOTE | 2018-09-10 12:30 | NUR ---
CBI RATE INCREASED D/T URINE RED. WILL CONT TO MONITOR CLOSELY.
--- NOTE | 2018-09-10 12:40 | NUR ---
DILAUDID FOR SEVERE ABD INC PAIN. C/O GAS PAIN WELL.
--- NOTE | 2018-09-10 13:02 | NUR ---
3RD UNIT pRBC STARTED.
--- NOTE | 2018-09-10 14:08 | NUR ---
RESTING QUIETLY W/ EYES CLOSED, RESP UNLABORED.
--- NOTE | 2018-09-10 16:12 | NUR ---
HYDROCODONE PO FOR INC PAIN.
--- NOTE | 2018-09-10 16:28 | NUR ---
4TH UNIT pRBC STARTED. VSS. PLEASANT.
--- NOTE | 2018-09-10 17:30 | NUR ---
CHG BATH/LINEN CHANGE. TAKING WATER W/O DIFFICULTY.
--- NOTE | 2018-09-10 17:45 | NUR ---
LEFT SC CVL DRSG CHANGED.
--- NOTE | 2018-09-10 19:30 | NUR ---
RECEIVED CARE OF PT, ASSESSMENT PER FLOWSHEET. PT ALERT AND ORIENTED X 4, HR SR ON CM, SUPRAPUBIC DRESSING CDI, IRRIGATION LANDRUM PATENT-URINE PINK WITH CLOTS NOTED. PT DENIES PAIN OR ANY NEEDS AT THIS TIME.
--- NOTE | 2018-09-10 21:20 | NUR ---
NO VISITORS PRESENT AT THIS TIME, PT RESTING IN BED WITH EYES CLOSED, 5/5 UNITS OF BLOOD INFUSING AT THIS TIME PER MD ORDER, NO S/S OF ADVERSE REACTION NOTED AT THIS TIME.
--- NOTE | 2018-09-10 23:15 | NUR ---
5/5 UNITS OF PRBC'S FINISHED INFUSING, NO S/S OF ADVERSE REACTION, PT DENIES ANY NEEDS, CONT POC.
[2018-09-11] VITALS (24 sets, daily range): BP systolic 92–163; BP diastolic 66–108
--- NOTE | 2018-09-11 00:34 | NUR ---
PT RESTING IN BED WITH EYES CLOSED, VSS, CONT POC.
--- NOTE | 2018-09-11 01:00 | NUR ---
REPORT REC'D AND CARE ASSUMED, PT RESTING IN BED EYES CLOSED, AWAKENS EASILY, RIGHT UPPER ARM PIV INFUSING LR @ 125CC/HR, LDLSCL DRSG CDI BILAT PORTS SALINE LOCKED, PT DENIES PAIN OR NEEDS, SR UP X 2, CALL LIGHT IN REACH, BED IN LOW POSITION.
[2018-09-11 01:03] LABS: HEMATOCRIT 32.2 % (42.0-54.0); HEMOGLOBIN 10.9 g/dL (13.5-17.5)
--- NOTE | 2018-09-11 03:00 | NUR ---
PT COMPLAINS OF BEING UNCOMFORTABLE IN BED, PT REPOSITIONED FOR COMFORT, VSS, WILL MONITOR FOR CHANGES.
--- NOTE | 2018-09-11 03:50 | NUR ---
PT COMPLAINS OF PAIN IN ABDOMEN RATING "8" ON 0-10 PAIN SCALE, NORCO GIVEN ORDERED, CLOT NOTED IN UROMETER, LANDRUM BAG EXCHANGED, IRRIGATION RUNNING SLOWLY WIDE OPEN, SALINE IRRIGATION USED TO FLUSH SUPRAPUBIC CATHETER USING STERILE TECHNIQUE, 400 CC BLOODY URINE NOTED, WILL MONITOR FOR CHANGES.
--- NOTE | 2018-09-11 04:45 | NUR ---
PT CONTINUES TO COMPLAIN OF SEVERE PAIN IN ABDOMEN, ABD DISTENDED AND FIRM, NS IRRIGATION INCREASED, BLOODY DRAINAGE NOTED IN LANDRUM, BP ELEVATED, WILL MONITOR CLOSELY FOR CHANGES.
--- NOTE | 2018-09-11 05:30 | NUR ---
AM LAB DRAWN FROM CV AND SENT TO LAB.
[2018-09-11 06:09] LABS: HEMATOCRIT 33.2 % (42.0-54.0); HEMOGLOBIN 11.3 g/dL (13.5-17.5)
[2018-09-11 06:36] LABS: POTASSIUM - SERUM 4.2 mmol/L (3.5-5.1)
--- NOTE | 2018-09-11 06:40 | NUR ---
IRRIGATION NOT DRIPPING, SUPRAPUBIC CATH FLUSHED AGAIN X 2 AFTER USING BLADDER SCANNER TO SCAN BLADDER SHOWING 568 ML, IMMEDIATE RETURN OF BLOODY URINE, IRRIGATION DRIPPING CONTINUOUSLY, WILL MONTIOR CLOSELY FOR CHANGES.
--- NOTE | 2018-09-11 06:45 | NUR ---
PARTIAL LINEN CHANGE PROVIDED AND PT REPOSITIONED UP AND ONTO RIGHT SIDE SUPPORTED WITH PILLOW, VSS.
--- NOTE | 2018-09-11 07:25 | NUR ---
PT REQUESTING PAIN MEDICATION, 2MG DILAUDID GIVEN FOR PAIN RATING "9" ON 0-10 PAIN SCALE, BP STABLE, PT DENIES FURTHER NEEDS, SR UP X 2, CALL LIGHT IN REACH.
--- NOTE | 2018-09-11 09:30 | NUR ---
ASSUMED CARE. SUPRAPUBIC CATH CLOTTED/ ABD DISTENDED- HAND IRRIGATED W STERILE SALINE 120ML W/ RETURN SANGUINOUS AND FEW SMALL CLOTS. HR 120'S/ MOANS ALOUD. FEELS IMMEDIATE EASING OF PAIN CATHETER BEGINS TO DRAIN WELL.
--- NOTE | 2018-09-11 10:32 | OP ---
PATIENT NAME: MAE MANN MEDICAL RECORD: [id number] :49 LOCATION:.[facility] D.2304 ADMISSION DATE:09/07/18 SURGEON: SYLVIA LOPEZ MD DATE OF OPERATION: 09/09/2018 SURGEONS: Sylvia Lopez MD for suprapubic tube insertion and prostate biopsy. Sylvia Diaz MD for exploratory laparotomy, right liver nodule biopsy, and omentectomy. EYELET CUTTER: Sylvia Diaz MD and Sylvia Lopez MD ANESTHESIA: General anesthesia. Ross Joshua CRNA. FINDINGS: The bladder was filled with clots and a fragmented stone. Very large prostate fills up most of the prostate and enters into the bladder lumen. No bladder tumors were seen. On exploratory laparotomy, old blood found in the peritoneal cavity. The source is uncertain. Tumor nodules were found on the serosal surface of the bowel. The nodule from the small bowel and from the cecal surface were obtained for biopsy. Large hard white metastatic nodules in the liver. Omentum was studded with tumor nodules. Procedure by Dr. Sylvia Lopez is open bladder clot evacuation, removal of bladder stones, placement of a suprapubic catheter 26-Uzbek 3-way catheter. Prostate biopsies were obtained from the left and right bases and right and left mid prostate. We are unable to access the apex of the prostate via this approach. For exploratory laparotomy by Dr. Diaz, bowel metastatic deposits were biopsied, omentectomy and liver biopsy. SPECIMENS: 1. Bladder stone. 2. Prostate biopsies from the left and right base, left and right mid prostate. 3. Tumor biopsies from the serosal surface of the bowel. 4. Liver biopsies. 5. Omentum. OPERATIVE DIAGNOSES: 1. Bladder clot, urinary retention, bladder stone. 2. Massively enlarged prostate with elevated PSA of over 280. 3. Urinary retention due to enlarged prostate. 4. Metastatic cancer of unknown origin to the liver, omentum, and bowel serosal surfaces. BLOOD LOSS: About 100 mL. CLINICAL HISTORY: This is a 72-year-old male, who is a patient of Dr. Sharma. He came through the Emergency Room with acute renal failure, bilateral hydroureteronephrosis due to urinary retention. The Emergency Room nurses attempted to place a Forde catheter, but all they did was inflate the Forde balloon in his prostate. I then had to bring him to the operating room to try to scope my way in and I discovered that the urethra of the prostate is completely occluded. In attempting to place a suprapubic catheter, I had to get ultrasound into the operating room because I could not find the bladder. The bladder was found to be massively displaced cranially due to a huge prostate. I managed to get an 18-Uzbek suprapubic tube in and I noticed on ultrasound and on suctioning the catheter that large masses of clots were in the bladder. The OPERATIVE REPORT [id number] MAE MANN suprapubic tube kept clotting up and now we will have to go in and evacuate all the clots from his bladder and put a very large 3-way catheter in for continuous bladder irrigation. Also, his CT scan shows besides massively enlarged prostate, bilateral hydronephrosis and multiple liver nodules consistent with metastatic cancer. We do not have tissue diagnosis and the patient's did request that we obtain biopsies while we were in there of both the prostate and the liver metastasis. Dr. Diaz also suspects that he may have omental metastasis and therefore we will obtain omentum also. He was given Ancef acid condenser to the OR. Due to his renal failure at the present time with a creatinine of 4.2, we only gave him 1 gram of Ancef acid condenser to the OR. DESCRIPTION OF PROCEDURE: The patient was placed in supine position. Dr. Leon had already given him a central line in the intensive care unit. After induction of general anesthesia, he was given an arterial line and he was also intubated and ventilated. A nasogastric tube was placed down into the stomach. As far for the abdomen, his suprapubic tube that I placed a couple of days ago was removed. He was shaved, prepped and draped. We marked out an incision going from the xiphoid process all the way down to the symphysis pubis. We did curve around to the left to avoid the suprapubic tube site, which I intended to use again for the new suprapubic tube. This is to prevent wound infection of the incision. We first worked from the suprapubic tube level down towards the symphysis pubis. This was because I wished to stay extraperitoneal while dealing with the bladder. We went down to the rectus fascia in the middle and then once the fascia was divided, we stayed in the extraperitoneal space. We identified the bladder. Stay sutures of 2-0 nylon were placed vertically on each side of the midline of the anterior wall of the bladder. These were then used to tent up the anterior wall of the bladder and a #10 blade was used to open up the bladder. Once we were into the bladder, the bladder was completely filled with blood clots. Just by squeezing on the bladder, these clots were made to come out of the cystotomy. We then used the Yankauer suction to remove the remaining clots in the bladder. In in the process of removing the clots, the bladder stones came out with the clots. These were isolated out and sent to pathology for stone analysis. We then irrigated out the bladder with normal saline. No bladder tumors were seen. The prostate is massive and it encroaches upon the bladder inferior surface extensively. There are large veins from the prostatic surface. No active bleeding was seen. We then used a 14-Uzbek Hollis-Cut biopsy gun and obtained at least 3 cores from the left base, the right base, and also the left mid prostate and the right mid prostate. All these specimens were sent in separate containers in formalin to pathology. The bladder was then closed in 2 layers using running 2-0 Vicryl. The first layer was full thickness. The second layer was seromuscular. Before closing the bladder, we inserted the 26-Uzbek 3-way Forde catheter through the old skin incision and into the bladder cystotomy. We closed from the inferior portion of the bladder cystotomy up to the level of the suprapubic tube. Once the bladder was closed, a pursestring suture of 2-0 Vicryl was placed around the suprapubic tube site to prevent leakage. Forde balloon was then inflated with 30 cc of sterile water. Continuous bladder irrigation with normal saline was started and the bag was put to straight drainage. We then entered into the peritoneal cavity. Dr. Diaz will dictate the details of this. However, the general line of the procedure was that he ran the bowel and did not find any abnormalities of the bowel itself. However, the bowel surface was studded with small tumor nodules. We biopsied 2 of the tumor nodules. The omentum itself was completely studded with tumor nodules also. A complete omentectomy was done from the transverse colon. Finally, the liver OPERATIVE REPORT [id number] MACKENZIE,MAE nodules were biopsied using a Hollis-Cut needle. The biopsy sites were coagulated and Surgicel Hollis-Knit was placed up against the liver surface. No active bleeding was seen. A 24 Omid drain was placed into the peritoneal cavity and put to suction drainage. The rectus fascia was then reapproximated using running #1 looped PDS. Hilliard were used to close the skin and dressings were applied. The suprapubic tube as well as a Omid drain had drain sutures of 2-0 nylon to prevent upward migration of the drain. The patient will be kept intubated and ventilated, and he was brought back to the intensive care unit. TRANSINT:[id number] Voice Confirmation ID: [id number] DOCUMENT ID: [id number] SYLVIA LOPEZ MD at 1032 CC: [id number] DICTATION DATE: 09/09/18 1950 BLENDER LABORER: 09/10/[address] [facility] [address] [id number]
--- NOTE | 2018-09-11 11:00 | NUR ---
ASSESSED, COMFORTABLE AT THIS TIME. VSS. URINE REMAINS RED. DR LOPEZ NOTIFIED OF INCREASED CLOTTING OF SUPRA-PUBIC CATH AND INCREASED RED COLOR OF URINE. NO NEW ORDERS.
--- NOTE | 2018-09-11 11:30 | NUR ---
DR GILL ROUNDS- NO NEW ORDERS.
[2018-09-11 12:17] LABS: HEMATOCRIT 29.5 % (42.0-54.0); HEMOGLOBIN 9.8 g/dL (13.5-17.5)
--- NOTE | 2018-09-11 12:30 | NUR ---
DR MARX ROUNDS- ORDERS REC'D.
--- NOTE | 2018-09-11 13:30 | NUR ---
CONT TO REQUIRE FAST DRIP RATE W/CBI. GIVEN HYDROCODONE FOR PAIN.
--- NOTE | 2018-09-11 14:00 | NUR ---
DR JORDAN ROUNDS- NO NEW ORDERS.
--- NOTE | 2018-09-11 15:00 | NUR ---
REASSESSED. DENIES ANY NEED AT THIS TIME. CATHETER OP REMAINS RED.
--- NOTE | 2018-09-11 17:00 | NUR ---
REPOSITIONED. SET-UP FOR DINNER. URINE RED- FLOW INCREASED ON CBI.
[2018-09-11 18:28] LABS: HEMATOCRIT 25.3 % (42.0-54.0); HEMOGLOBIN 8.5 g/dL (13.5-17.5)
--- NOTE | 2018-09-11 19:10 | NUR ---
DR LOPEZ NOTOFIED OF H/H 8.5/.3- ORDERS REC'D TO TRANSFUSE 2 UNITS pRBC.
--- NOTE | 2018-09-11 19:43 | NUR ---
PT C/O ABDOMINAL PAIN, PRN PO NORCO ADMINISTERED PER MD ORDER/PT REQUEST.
--- NOTE | 2018-09-11 23:30 | NUR ---
REASSESSMENT PER FLOWSHEET, HR SR ON CM, CONT POC.
[2018-09-12] VITALS (24 sets, daily range): BP systolic 139–185; BP diastolic 84–106
--- NOTE | 2018-09-12 00:07 | NUR ---
PRN DILAUDID 2 MG ADMINISTERED FOR BREAKTHROUGH PAIN 8/10 ON PAIN SCALE PER MD ORDER/PT REQUEST. WILL MONITOR.
--- NOTE | 2018-09-12 02:10 | NUR ---
PT AWAKE IN BED, DENIES ANY NEEDS, ABLE TO REPOSITION SELF, VSS.
--- NOTE | 2018-09-12 04:30 | NUR ---
PT TRYING TO GET UP OOB, STATING HE "NEEDS A BREAK FROM THE TRIP". UNABLE TO ELABORATE ON WHAT HE MEANS. STATES HE WANTS TO LEAVE AND COME BACK IN A FEW HOURS. UNABLE TO REORIENT PT, CALLED PER REQUEST. PT SPOKE WITH ON PHONE, RN SPOKE WITH . UPON ENTRANCE BACK IN TO ROOM PT COOPERATIVE AND STATES MAY COME VISIT IN A FEW HOURS.
[2018-09-12 04:55] LABS: BASOPHILS 0.1 % (0-2); EOSINOPHILS 0.8 % (0-7); HEMATOCRIT 26.8 % (42.0-54.0); HEMOGLOBIN 9.1 g/dL (13.5-17.5); IMMATURE GRANULOCYTES 0.3 % (0-5); LYMPHOCYTES 9.9 % (15-50); MCH 29.7 pg (26.0-34.0); MCV 87.6 fL (80.0-100.0); MEAN PLATELET VOLUME 9.1 fL (7.4-10.4); MONOCYTES 8.9 % (2-11); RDW 14.5 % (11.5-14.5)
[2018-09-12 04:57] LABS: PLATELET COUNT 144 10x3/uL (130-400); RBC 3.06 10x6/uL (4.20-6.10); WBC 15.3 10x3/uL (4.8-10.8)
[2018-09-12 05:08] LABS: CALCIUM 8.1 mg/dL (8.5-10.1); CARBON DIOXIDE 25.4 mmol/L (21.0-32.0); POTASSIUM - SERUM 4.4 mmol/L (3.5-5.1)
[2018-09-12 05:09] LABS: CREATININE - SERUM 1.6 mg/dL (0.6-1.3)
--- NOTE | 2018-09-12 05:35 | NUR ---
AM LABS REVIEWED, NOTHING TO TREAT PER ELECTROLYTE PROTOCOL.
--- NOTE | 2018-09-12 07:00 | NUR ---
REPORT RECEIVED. ASSESSMENT COMPLETE PER FLOW SHEET. VSS. PT DENIES NEEDS WILL CONTINUE TO MONITOR
--- NOTE | 2018-09-12 08:00 | NUR ---
AT BEDSIDE ANXIOUS AGGITATED. QUESTIONING WHY PT SO CONFUSED. QUESTIONS ANSWERED. DR AILYN HOFFMAN GIVEN UDPATE. NEW ORDERS RECEIVED. GIVEN UDPATE. STATED OKAY
--- NOTE | 2018-09-12 08:55 | NUR ---
Nutrition follow-up: Diet: Regular soft PO intake ~50% of some meals Pt extubated 09/10 +BM, smear WT: 133# RDN following.
--- NOTE | 2018-09-12 09:02 | NUR ---
DR JORDAN AT BEDSIDE GIVENUDPATE. EXPLAINED DX AND CARE AT GREAT LENGTH TO , STATED OKAY. PT DENIES NEEDS WILL CONTNIUE TO MONITOR
--- NOTE | 2018-09-12 10:05 | NUR ---
DR LOPEZ AT BEDSIDE FAMILY GIVEN UDPATE
--- NOTE | 2018-09-12 11:00 | NUR ---
REASSESSMENT COMPLETE PER FLOW SHEET. VSS. NO NEW CHANGES PT RESTING COMFORTABLY FAMILY AT BEDSIDE WILL CONTINUE TO MONITOR
--- NOTE | 2018-09-12 13:20 | NUR ---
PT TO CT AT THIS TIME.
[2018-09-12 13:21] LABS: HEMATOCRIT 31.5 % (42.0-54.0); HEMOGLOBIN 10.9 g/dL (13.5-17.5)
--- NOTE | 2018-09-12 15:00 | NUR ---
REASSESSMENT COMPLETE PER FLOW SHEET. VSS. NO NEW CHANGES PT RESTING COMFORTABLY WILL CONTINUE TO MONITOR
[2018-09-12 18:39] LABS: HEMATOCRIT 30.4 % (42.0-54.0); HEMOGLOBIN 10.5 g/dL (13.5-17.5)
--- NOTE | 2018-09-12 19:00 | NUR ---
REPORT RECEIVED, CARE ASSUMED. PT IS LAYING IN BED WITH EYES CLOSED AT THIS TIME. NO NEEDS VOICED. INITIAL ASSESSMENT COMPLETED, SEE FLOWSHEET FOR DETAILS. NO SIGNS OF ACUTE DISTRESS NOTED AT THIS TIME. WILL CONTINUE TO MONITOR.
--- NOTE | 2018-09-12 21:00 | NUR ---
PT IS RESTING IN BED WITH EYES CLOSED AT THIS TIME. NO NEEDS VOICED. NO SIGNS OF ACUTE DISTRESS NOTED. WILL CONTINUE TO MONITOR.
--- NOTE | 2018-09-12 23:00 | NUR ---
REASSESSMENT COMPLETED, SEE FLOWSHEET FOR DETAILS. PT IS LAYING IN BED WITH EYES CLOSED AT THIS TIME. NO NEEDS VOICED. NO SIGNS OF ACUTE DISTRESS. WILL CONTINUE TO MONITOR.
[2018-09-13] VITALS (24 sets, daily range): BP systolic 143–184; BP diastolic 65–109
--- NOTE | 2018-09-13 01:00 | NUR ---
PT IS LAYING IN BED WITH EYES CLOSED AT THIS TIME. NO NEEDS VOICED AT THIS TIME. NO SIGNS OF ACUTE DISTRESS. WILL CONTINUE TO MONITOR.
--- NOTE | 2018-09-13 03:00 | NUR ---
REASSESSMENT COMPLETED, SEE FLOWSHEET FOR DETAILS. PT IS LAYING IN BED WITH EYES CLOSED AT THIS TIME. NO SIGNS OF ACUTE DISTRESS. WILL CONTINUE TO MONITOR.
--- NOTE | 2018-09-13 05:00 | NUR ---
PT IS LAYING IN BED WITH EYES CLOSED AT THIS TIME. NO SIGNS OF ACUTE DISTRESS. WILL CONTINUE TO MONITOR.
[2018-09-13 05:10] LABS: CALCIUM 7.2 mg/dL (8.5-10.1); CARBON DIOXIDE 22.4 mmol/L (21.0-32.0); CHLORIDE - SERUM 108 mmol/L (98-107); GLUCOSE 111 mg/dL (74-106); PHOSPHOROUS 2.4 mg/dL (2.5-4.9); POTASSIUM - SERUM 4.1 mmol/L (3.5-5.1); SODIUM 140 mmol/L (136-145)
[2018-09-13 05:19] LABS: CALC OSMOLALITY 282 mosm/kg (275-300); CREATININE - SERUM 0.6 mg/dL (0.6-1.3); UREA NITROGEN 20 mg/dL (7-18); eGFR NON AFRICAN AMERICAN > 90 mL/min (90-120)
[2018-09-13 05:23] LABS: WBC 28.1 10x3/uL (4.8-10.8)
[2018-09-13 05:24] LABS: HEMATOCRIT 39.1 % (42.0-54.0); HEMOGLOBIN 12.8 g/dL (13.5-17.5); MCH 29.6 pg (26.0-34.0); MCHC 32.7 g/dL (31.0-37.0); MCV 90.3 fL (80.0-100.0); PLATELET COUNT 137 10x3/uL (130-400); RBC 4.33 10x6/uL (4.20-6.10); RDW 16.1 % (11.5-14.5)
[2018-09-13 06:00] LABS: LYMPHOCYTES 7 % (15-50); MONOCYTES 9 % (2-11); NEUTROPHILS 36 % (40-80); PLATELET ESTIMATE DECREASED
--- NOTE | 2018-09-13 06:54 | NUR ---
REPORT RECEIVED. ASSESSMENT COMPLETE PER FLOW SHEET. VSS. NO NEW CHANGES PT RESTING COMFORTABLY WILL CONTINUE TO MONITOR
--- NOTE | 2018-09-13 08:15 | NUR ---
AT [facility] GIVEN UPDATE. PT ATTEMPT TO DRINK MAG CITRATE PT N/V 100 CC BROWN EMESIS. KUB ORDERED ZOFRAN ADM
--- NOTE | 2018-09-13 09:20 | NUR ---
DR JORDAN AT BEDSIDE GIVEN UDPATE
--- NOTE | 2018-09-13 10:15 | NUR ---
DR LOPEZ AT BEDSIDE GIVEN UDPATE REGAURDING ILEUS
--- NOTE | 2018-09-13 11:00 | NUR ---
REASSESSMENT COMPLETE PER FLOW SHEET. VSS NO NEW CHANGES PT RESTING COMFORTABLY WILL CONTINUE TO MONITOR
--- NOTE | 2018-09-13 11:30 | NUR ---
DR ROBERTSON PAGED WITH KUB FINDINGS. T ORDER FOR NGT INSERTION. WILL ADM.
--- NOTE | 2018-09-13 12:15 | NUR ---
DR RUSSO AT BEDSIDE GIVEN UDPATE. DR RUSSO ASSISTED WITH NGT INSERTION. XR OBTAINED TO VERIFY PLACEMENT
[2018-09-13 13:27] LABS: HEMATOCRIT 31.7 % (42.0-54.0); HEMOGLOBIN 10.8 g/dL (13.5-17.5)
--- NOTE | 2018-09-13 15:00 | NUR ---
REASSESSMENT COMPLETE PER FLOW SHEET. VSS. NO NEW CHANGES PT RESTING COMFORTALBY WILL CONTINUE TO MONITOR
--- NOTE | 2018-09-13 17:15 | NUR ---
PT RESTING COMFORTABLY VSS NO NEW CHANGES WILL CONTINUE TO MONITOR
[2018-09-13 18:09] LABS: HEMATOCRIT 31.6 % (42.0-54.0); HEMOGLOBIN 10.8 g/dL (13.5-17.5)
--- NOTE | 2018-09-13 19:00 | NUR ---
REPORT RECEIVED, CARE ASSUMED. PT IS LAYING IN BED WITH EYES CLOSED AT THIS TIME. INITIAL ASSESSMENT COMPLETED, SEE FLOWSHEET FOR DETAILS. NO NEEDS VOICED AT THIS TIME. NO SIGNS OF ACUTE DISTRESS. WILL CONTINUE TO MONITOR.
--- NOTE | 2018-09-13 21:00 | NUR ---
PT IS LAYING IN BED AT THIS TIME WITH EYES CLOSED. NO VOICED AT THIS TIME. NO SIGNS OF ACUTE DISTRESS. WILL CONTINUE TO MONITOR.
--- NOTE | 2018-09-13 23:00 | NUR ---
REASSESSMENT COMPLETED, SEE FLOWSHEET FOR DETAILS. PT IS LAYING IN BED WITH EYES CLOSED AT THIS TIME. NO NEEDS VOICED. NO SIGNS OF ACUTE DISTRESS NOTED. WILL CONTINUE TO MONITOR.
[2018-09-14] VITALS (10 sets, daily range): BP systolic 158–185; BP diastolic 81–99
--- NOTE | 2018-09-14 03:00 | NUR ---
SHIFT REASSESSMENT COMPLETED PER FLOW SHEET WITH NO ACUTE DISTRESS OBSERVED. CALL LIGHT IN REACH
--- NOTE | 2018-09-14 05:00 | NUR ---
RESTING WITH EYES CLOSED EASILY ROUSED AND ALERT. VSS. NO ACUTE DISTRESS OBSERVED. CALL LIGHT IN REACH
[2018-09-14 05:39] LABS: APPEARANCE HAZY (CLEAR); BILIRUBIN NEGATIVE (NEGATIVE); COLOR PINK (YELLOW); GLUCOSE NEGATIVE (NEGATIVE); KETONE NEGATIVE (NEGATIVE); NITRITE NEGATIVE (NEGATIVE); PROTEIN NEGATIVE (NEGATIVE); SPECIFIC GRAVITY 1.005 (1.005-1.020); UROBILINOGEN NORMAL (NORMAL)
[2018-09-14 05:46] LABS: BACTERIA FEW /hpf (NONE SEEN); EPITHELIAL CELLS 0-5 /hpf (0-5); WHITE CELLS - URINE 0-5 /hpf (0-5)
[2018-09-14 06:25] LABS: HEMATOCRIT 32.9 % (42.0-54.0); HEMOGLOBIN 10.8 g/dL (13.5-17.5); MCH 29.7 pg (26.0-34.0); MCHC 32.8 g/dL (31.0-37.0); MCV 90.4 fL (80.0-100.0); MEAN PLATELET VOLUME 9.4 fL (7.4-10.4); PLATELET COUNT 150 10x3/uL (130-400); RBC 3.64 10x6/uL (4.20-6.10); RDW 14.4 % (11.5-14.5)
[2018-09-14 06:30] LABS: WBC 14.1 10x3/uL (4.8-10.8)
[2018-09-14 06:34] LABS: ALBUMIN 1.6 g/dL (3.4-5.0); ANION GAP 14.2 mmol/L (8-16); BILIRUBIN - DIRECT 0.07 mg/dL (0.00-0.30); BILIRUBIN - INDIRECT 0.44 mg/dL (0.00-1.00); BILIRUBIN - TOTAL 0.51 mg/dL (0.2-1.3); CALCIUM 7.9 mg/dL (8.5-10.1); CARBON DIOXIDE 24.8 mmol/L (21.0-32.0); PHOSPHOROUS 2.9 mg/dL (2.5-4.9); PROTEIN - SERUM 4.7 g/dL (6.4-8.2)
[2018-09-14 06:38] LABS: CREATININE - SERUM 1.1 mg/dL (0.6-1.3)
--- NOTE | 2018-09-14 07:00 | NUR ---
REPORT RECEIVED. ASSESSMENT COMPLETE PER FLOW SHEET. VSS. PT RESTING COMFORTABLY WILL CONTINUE TO MONITOR
[2018-09-14 08:37] LABS: LYMPHOCYTES 12 % (15-50); MONOCYTES 8 % (2-11); NEUTROPHILS 79 % (40-80); PLATELET ESTIMATE NORMAL
[2018-09-14 08:39] LABS: ANISOCYTOSIS OCC; POLYCHROMASIA OCC
--- NOTE | 2018-09-14 09:00 | NUR ---
AT BEDSIDE GIVEN UPDATE. NEEDS MET. WILL CONTINUE TO MONITOR
--- NOTE | 2018-09-14 11:00 | NUR ---
DR LEIVA AT BEDSIDE. GIVEN UPDATE. NEW ORDERS RECEIVED.
[2018-09-14 11:51] LABS: HEMATOCRIT 32.9 % (42.0-54.0)
--- NOTE | 2018-09-14 12:06 | NUR ---
Nutrition follow-up: Pt now on clear liquids due to ileus. NGT->LIWS Labs reviewed Wt: 136# Will need to start nutrition support if diet unable to advance past clear liquids within 24-[address] following.
--- NOTE | 2018-09-14 13:00 | NUR ---
DAUGHTER AND SISTER AT BEDSIDE GIVEN UDPATE.
--- NOTE | 2018-09-14 17:07 | NUR ---
PATIENT ADMITTED TO ROOM 2236. ALERT AND ORIENTED X 3. AT BEDSIDE. LUNGS CLEAR BILATERALLY IN ALL RODRIGUEZ. HEART SOUNDS S1 AND S2 HEARD IN ALL RODRIGUEZ. BOWEL SOUNDS ACTIVE X 4. INCISION TO ABD C/D/I. S/P PATENT. DARK RED URINE IN BAG. CATHETER CURRENTLY DRAINING LIGHT PINK URINE. S/P IRRIGATION IN PLACE. RADHA TO LLQ WITH 150ML OUTPUT. NG TUBE TO INTERMITTENT SUCTION. IV TO LEFT SUBCLAVIAN PATENT WITHOUT REDNESS. ICU NURSE STATES DRSG CHANGED TODAY. BED ALARM ON. FALL PRECAUTIONS IN PLACE. BED LOW. CALL CARMICHAEL AND PERSONAL ITEMS IN REACH. WILL CONTINUE TO MONITOR.
--- NOTE | 2018-09-14 17:36 | NUR ---
RESTING IN BED. DENIES PAIN. DENIES NEEDS.
[2018-09-14 18:12] LABS: HEMATOCRIT 31.2 % (42.0-54.0); HEMOGLOBIN 10.4 g/dL (13.5-17.5)
[2018-09-15] VITALS: BP 154/81
--- NOTE | 2018-09-15 03:54 | NUR ---
I have reviewed this patient and I concur with the Shift Assessment completed by the Licensed Practical Nurse today this shift.
[2018-09-15 04:00] VITALS: BP 165/80
[2018-09-15 06:46] LABS: BASOPHILS 0.2 % (0-2); EOSINOPHILS 2.2 % (0-7); HEMATOCRIT 32.3 % (42.0-54.0); HEMOGLOBIN 10.9 g/dL (13.5-17.5); IMMATURE GRANULOCYTES 0.8 % (0-5); LYMPHOCYTES 9.3 % (15-50); MCH 29.9 pg (26.0-34.0); MCHC 33.7 g/dL (31.0-37.0); MCV 88.7 fL (80.0-100.0); MONOCYTES 7.5 % (2-11); PLATELET COUNT 169 10x3/uL (130-400); RBC 3.64 10x6/uL (4.20-6.10); WBC 11.4 10x3/uL (4.8-10.8)
[2018-09-15 06:49] LABS: CALC OSMOLALITY 282 mosm/kg (275-300); CALCIUM 7.6 mg/dL (8.5-10.1); CHLORIDE - SERUM 105 mmol/L (98-107); POTASSIUM - SERUM 3.9 mmol/L (3.5-5.1); SODIUM 141 mmol/L (136-145); UREA NITROGEN 23 mg/dL (7-18); eGFR NON AFRICAN AMERICAN 78 mL/min (90-120)
[2018-09-15 06:59] LABS: GLUCOSE 70 mg/dL (74-106)
--- NOTE | 2018-09-15 07:33 | NUR ---
PT IS RESTING IN BED WITH EYES CLOSED. PT IS AWAKE AND C/O PAIN. WILL ADDRESS. SEE EMAR. LANDRUM CATHETER EMPTIED OF 800ML RED URINE. CATHETER IS BEING IRRIGATED. SMALL CLOTS NOTED IN LANDRUM TUBING. LANDRUM DRAINING WITHOUT DIFFICULTY. NG TUBE TO LEFT NARE SET TO LIS. RADHA DRAIN TO LEFT LOWER ABDOMEN. 100ML RED DRAINAGE EMPTIED. PT DENIES FURTHER NEEDS AT THIS TIME. BED IS IN THE LOWEST POSITION. CALL LIGHT AND BEDSIDE TABLE ARE WITHIN REACH. SIDE RAILS X 2. BED ALARM IS ON AND WORKING. WILL CONT TO MONITOR.
[2018-09-15 09:09] VITALS: BP 171/85
--- NOTE | 2018-09-15 09:35 | MORECARE ---
CASE MANAGEMENT DISCHARGE SUMMARY PATIENT: MAE MANN UNIT: [id number] ADM DATE: 09/07/18 AGE: 72 : [birth year] SEX: M ROOM/BED: D.2236 AUTHOR: HARMANDOC PHYSICIAN: REFERRING PHYSICIAN: CHELSIE MARX MD DATE OF SERVICE: 09/15/18 Discharge Plan Patient Name: MAE MANN Facility: [facility]:[place] : 1945 Planned Disposition: Home Anticipated Discharge Date: Discharge Date: Expected LOS: Initial Reviewer: [email or web address] Initial Review Date: 09/07/2018 Generated: 09/15/18 10:34 am Comments DCP- Discharge Planning Updated by [email or web address]: Terri Silver on 09/15/18 8:[address] Received out of ICU yesterday. I met with patient and his today. They are unsure of any needs at this time. I gave them my business card and educated them on my role as marketing planner. I instructed them on the availability of rehab, SNF, home health and DME. Patient's states she will notify me of needs. CM will continue to follow and assist with discharge planning/needs. DCP- Discharge Planning Updated by [id number]: Elizabeth Sandy on 09/08/18 6:[address] Patient Name: MAE MANN Admission Status: ER Accout number: [id number] Admission Date: 09-07-2018 : 1945 Admission Diagnosis: Attending: CHELSIE MARX Current LOS: 1 Anticipated DC Date: Planned Disposition: Home Primary Insurance: MEDICARE A & B Discharge Planning Comments: CM met with patient at bedside after explaining CM role and obtaining verbal consent. Patient lives at home with his Vikki and plans to return there upon discharge. Patient feels this would be a safe discharge. CM discussed availability / needs of home health and medical equipment. Patient denies any discharge needs at this time. Patient states he will have his drive him home upon discharge. CM will continue to follow and assist as needed with discharge planning / needs. Private Pilot: Elizabeth Sandy DCP- Discharge Planning Updated by [id number]: Elizabeth Sandy on 09/07/18 4:[address] CM attempted to see patient for discharge planning but patient is currently in OR no family available at this time. CM will continue to follow and assist as needed with discharge planning / needs. DCPIA - Discharge Planning Initial Assessment Updated by [email or web address]: Elizabeth Sandy on 09/08/18 7:14 pm * Is the patient Alert and Oriented? Yes * How many steps to enter\exit or inside your home? * PCP FRANKY ANTONIO AP[facility] * [facility] * Preadmission Environment Home with Family * ADLs Independent * Equipment None * List name and contact numbers for known caregivers / representatives who currently or will assist patient after discharge: VIKKI MANN - - [phone] * Verbal permission to speak to the caregivers and representatives has been obtained from the patient. N/A * Community resources currently utilized None * Additional services required to return to the preadmission environment? No * Can the patient safely return to the preadmission environment? Yes * Has this patient been hospitalized within the prior 30 days at any hospital? No Last DP export: 09/08/18 6:17 p Patient Name: MAE MANN Page [id number] at 0935 All edits/amendments must be made on the electronic document DICTATION DATE: 09/15/18933 OTOLARYNGOLOGY REP: SRINIVAS 09/15/18933 RPT#: [id number] DC DATE: STATUS: ADM IN [facility] [address] [place] [address] END OF REPORT
--- NOTE | 2018-09-15 10:44 | NUR ---
PT STATES THAT HE DOES NOT WISH TO DO COLONOSCOPY ON 09/16/18.
[2018-09-15 13:28] VITALS: BP 173/86
[2018-09-15 16:09] LABS: CALCULI - CALCIUM PHOSPHATE 60 % (()); CALCULI - COLOR Tan (()); CALCULI - COMMENT Note: (()); CALCULI - MAGNESIUM AMMON PHOS 40 % (()); CALCULI - WEIGHT 1057.7 mg (())
[2018-09-15 16:17] VITALS: BP 169/85
--- NOTE | 2018-09-15 17:27 | NUR ---
BLADDER SCAN PERFORMED PER DR ROBERTSON REQUEST. BLADDER SCAN RESULTS 283ML IN BLADDER. IRRIGATION TO SUPRAPUBIC CATHETER IS FLOWING WITHOUT DIFFICULTY. RED URINE NOTED TO COLLECTION BAG. DR ROBERTSON PAGED TO NOTIFY OF BLADDER SCAN RESULTS.
--- NOTE | 2018-09-15 19:46 | NUR ---
GREETED PATIENT AND INTRODUCED MYSELF. PATIENT IS LAYING IN BED WATCHING TV. O2 1.5 IN USE VIA NC. RESPIRATIONS EVEN. NO S/S OF DISTRESS. CALL LIGHT IN REACH. PATIENT DENIES ANY PAIN AT THIS TIME.
[2018-09-15 20:38] VITALS: BP 158/85
[2018-09-16 01:22] VITALS: BP 150/75
--- NOTE | 2018-09-16 06:34 | NUR ---
PATIENT AWAKE AND RESTING QUIETLY WATCHING TV. DENIES ANY NEEDS AT THIS TIME. CALL LIGHT IN REACH
--- NOTE | 2018-09-16 07:06 | NUR ---
PATIENT IS REFUSING TO HAVE BED CHANGED AT THIS TIME. STATES THAT HIS PAIN IS TOO BAD.
--- NOTE | 2018-09-16 07:25 | NUR ---
PATIENT RESTING IN BED. ALERT AND ORIENTED X 3. STATES IN PAIN AND UNABLE TO CHANGE BEDDING AT THIS TIME. NEXT PAIN MED DUE AT 0900. LUNGS CLEAR BILATERALLY IN ALL RODRIGUEZ. HEART SOUNDS S1 AND S2 HEARD IN ALL RODRIGUEZ. BOWEL SOUNDS ACTIVE X 4. S/P CATHETER PATENT AND DRAINING DARK RED URINE. IRRIGATION IN PLACE. LEFT SUBCLAVIAN PATENT WITHOUT REDNESS. LEAKING AROUND SITE. NURSE IN REPORT STATES HAS BEEN LEAKING SINCE ADMISSION. IV TO TONIE SL PATENT WITHOUT REDNESS. O2 IN PLACE AT 1.5L. INCISION TO ABD C/D/I. LLQ RADHA DRAIN PATENT. BED ALARM ON. BED LOW. CALL CARMICHAEL AND PERSONAL ITEMS IN REACH. DENIES NEEDS AT THIS TIME. WILL CONTINUE TO MONITOR.
[2018-09-16 07:34] LABS: CALC OSMOLALITY 281 mosm/kg (275-300); CALCIUM 7.8 mg/dL (8.5-10.1); CARBON DIOXIDE 26.1 mmol/L (21.0-32.0); CHLORIDE - SERUM 105 mmol/L (98-107); GLUCOSE 73 mg/dL (74-106); POTASSIUM - SERUM 3.8 mmol/L (3.5-5.1); SODIUM 141 mmol/L (136-145); UREA NITROGEN 19 mg/dL (7-18); eGFR NON AFRICAN AMERICAN 78 mL/min (90-120)
[2018-09-16 07:52] LABS: BASOPHILS 0.4 % (0-2); EOSINOPHILS 3.8 % (0-7); HEMATOCRIT 29.7 % (42.0-54.0); IMMATURE GRANULOCYTES 0.4 % (0-5); MCH 29.8 pg (26.0-34.0); MCHC 33.7 g/dL (31.0-37.0); MCV 88.4 fL (80.0-100.0); MONOCYTES 8.5 % (2-11); NEUTROPHILS 78.9 % (40-80); RBC 3.36 10x6/uL (4.20-6.10); WBC 9.3 10x3/uL (4.8-10.8)
[2018-09-16 07:55] LABS: PLATELET COUNT 208 10x3/uL (130-400)
[2018-09-16 08:50] VITALS: BP 169/78
--- NOTE | 2018-09-16 09:15 | NUR ---
ASKED PATIENT IF WOULD LIKE BED BATH AND IF WOULD WEAR SCDS. AT BEDSIDE STATES CAN GET BED BATH LATER WHEN NOT RESTING. STATES PATIENT WAS WEARING SCDS IN ICU BUT TOOK OFF. STAED CAN PUT SCDS ON LATER WHEN PATIENT NOT RESTING.
--- NOTE | 2018-09-16 09:25 | NUR ---
LINENS AND GOWN CHANGED. DRSG TO LEFT SUBCLAVIAN IV CHANGED. LANDRUM IRRIGATION SLOWED SLIGHTLY. NO CLOTS. DRAINAGE COLOR LIGHT RED. WILL CONTINUE TO MONITOR.
--- NOTE | 2018-09-16 10:03 | NUR ---
SPOKE WITH DR JORDAN. STATES PATHOLOGY NOT BACK YET. NOTIFIED PER REQUEST.
--- NOTE | 2018-09-16 10:17 | NUR ---
SLEEPING. WILL CONTINUE TO MONITOR.
--- NOTE | 2018-09-16 11:02 | NUR ---
RACIEL FERNANDEZ NOTIFIED PATIENT WOULD LIKE TO SEE HER. STATES WILL GO SEE.
--- NOTE | 2018-09-16 13:00 | NUR ---
OFFLOADED TO LEFT SIDE.
--- NOTE | 2018-09-16 14:14 | NUR ---
RESTING IN BED. DENIES PAIN. DENIES NEEDS. WILL CONTINUE TO MONITOR.
--- NOTE | 2018-09-16 14:43 | NUR ---
NUTRITION F/U CHART REVIEWED. NOTE MD CONSULT FOR TPN. PROCALAMINE STARTED AT 50 CC/HR PER MD. WILL MONITOR AND PROVIDE TPN IF RECONSULTED. RD FOLLOWING
--- NOTE | 2018-09-16 16:15 | NUR ---
SLEEPING. WILL CONTINUE TO MONITOR.
[2018-09-16 16:58] VITALS: BP 165/85
--- NOTE | 2018-09-16 18:18 | NUR ---
RESTING IN BED. DENIES PAIN. DENIES NEEDS. BED LOW. BED ALARM ON. CALL CARMICHAEL AND PERSONAL ITEMS IN REACH.
[2018-09-16 20:22] VITALS: BP 173/87
[2018-09-17 00:45] VITALS: BP 168/75
[2018-09-17 05:26] VITALS: BP 157/81
[2018-09-17 06:00] LABS: BASOPHILS 0.3 % (0-2); EOSINOPHILS 3.1 % (0-7); HEMATOCRIT 29.7 % (42.0-54.0); HEMOGLOBIN 9.9 g/dL (13.5-17.5); IMMATURE GRANULOCYTES 0.4 % (0-5); LYMPHOCYTES 7.7 % (15-50); MCH 29.4 pg (26.0-34.0); MCHC 33.3 g/dL (31.0-37.0); MCV 88.1 fL (80.0-100.0); MEAN PLATELET VOLUME 8.9 fL (7.4-10.4); MONOCYTES 6.9 % (2-11); NEUTROPHILS 81.6 % (40-80); PLATELET COUNT 209 10x3/uL (130-400); RBC 3.37 10x6/uL (4.20-6.10); RDW 13.9 % (11.5-14.5); WBC 7.8 10x3/uL (4.8-10.8)
[2018-09-17 06:20] LABS: ALBUMIN 1.3 g/dL (3.4-5.0); ALKALINE PHOSPHATASE 64 U/L (46-116); ALT (SGPT) 17 U/L (10-68); BILIRUBIN - TOTAL 0.42 mg/dL (0.2-1.3); CALC OSMOLALITY 277 mosm/kg (275-300); CALCIUM 7.5 mg/dL (8.5-10.1); CARBON DIOXIDE 27.7 mmol/L (21.0-32.0); CHLORIDE - SERUM 104 mmol/L (98-107); CREATININE - SERUM 0.9 mg/dL (0.6-1.3); GLUCOSE 103 mg/dL (74-106); PROTEIN - SERUM 4.2 g/dL (6.4-8.2); SODIUM 138 mmol/L (136-145); UREA NITROGEN 19 mg/dL (7-18); eGFR NON AFRICAN AMERICAN 89 mL/min (90-120)
[2018-09-17 08:42] VITALS: BP 163/79
[2018-09-17 12:37] VITALS: BP 135/80
--- NOTE | 2018-09-17 12:45 | NUR ---
REC'D PT LYING IN BED RESP EVEN AND NONLABORED PT DENIES PAIN AT THIS TIME IV TO RIGHT SUBCLAVIAN PATENT AND INTACT AT THIS TIME. SRX2 BED AT LOWEST SETTING BRAKES ON. CALL LIGHT WITHIN REACH WILL CONTINUE TO MONITOR
[2018-09-17 13:09] LABS: ALPHA FETOPROTEIN -(TUMOR MRK) 6.2 ng/mL (0.0-8.3)
[2018-09-17 18:21] VITALS: BP 147/75
[2018-09-17 21:43] VITALS: BP 120/82
--- NOTE | 2018-09-18 00:31 | NUR ---
PATIENT IN BED WITH CALL LIGHT AND WATER IN REACH NO S/S OF DISTRESS. SUP PUB CATH IN PLACE WITH FLUSH PER ORDER BLOODY OUT PUT. RADHA DRAIN IN PLACE WITH BLODY DRANAGE . LEFT IJ IN PLACE AND PATEN WITH PROCAL AT 50ML/HR AND NS AT 100ML HR. IV TO UPPER RIGHT ARM IN PLACE AND SL. FALL PERCAUSATIONS IN PLACE. CHECKED OFTEN FOR NEEDS AND SAFETY.
[2018-09-18 00:56] VITALS: BP 141/82
[2018-09-18 04:00] VITALS: BP 134/88
[2018-09-18 06:30] LABS: BASOPHILS 0.1 % (0-2); EOSINOPHILS 2.4 % (0-7); HEMATOCRIT 30.3 % (42.0-54.0); HEMOGLOBIN 10.1 g/dL (13.5-17.5); IMMATURE GRANULOCYTES 0.1 % (0-5); LYMPHOCYTES 8.6 % (15-50); MCH 29.4 pg (26.0-34.0); MCHC 33.3 g/dL (31.0-37.0); MCV 88.1 fL (80.0-100.0); MEAN PLATELET VOLUME 8.8 fL (7.4-10.4); MONOCYTES 5.5 % (2-11); NEUTROPHILS 83.3 % (40-80); RBC 3.44 10x6/uL (4.20-6.10); RDW 13.9 % (11.5-14.5); WBC 7.6 10x3/uL (4.8-10.8)
[2018-09-18 06:35] LABS: PLATELET COUNT 257 10x3/uL (130-400)
[2018-09-18 06:54] LABS: ALBUMIN 1.2 g/dL (3.4-5.0); ANION GAP 8.6 mmol/L (8-16); BILIRUBIN - TOTAL 0.31 mg/dL (0.2-1.3); CALCIUM 7.3 mg/dL (8.5-10.1); CARBON DIOXIDE 28.3 mmol/L (21.0-32.0); CREATININE - SERUM 1.1 mg/dL (0.6-1.3); POTASSIUM - SERUM 3.9 mmol/L (3.5-5.1); PROTEIN - SERUM 4.1 g/dL (6.4-8.2)
[2018-09-18 09:25] VITALS: BP 151/82
--- NOTE | 2018-09-18 10:00 | NUR ---
CALLED DR LOPEZ AND TOLD HIM ABOUT THE RADHA DRAIN DRAINING EXCESSIVELY AND THE F/C NOT DRAINING MUCH WAS ORDERED BY DR LOPEZ TO IRRIGATE SUPAPUBIC CATH TO MAKE SURE THERE ARE NO CLOTS BLOCKING THE FLOW, WILL FOLLOW 'S ORDERES
--- NOTE | 2018-09-18 11:02 | NUR ---
IRRIGATED SUPRAPUBIC CATH ORDERED BY DR. LOPEZ WITH 120CC OF NORMAL SALINE NO RESISTED MET NO CLOTS NOTED NO SIGNS OF DISCOMFORT DURING PROCEDURE RADHA DRAIN CONTINUES TO DRAIN EXCESSIVELY F/C DRAINING AT A SLOWER RATE THAN RADHA DRAIN, PT TOLERATED W/O COMPLAINT CL IN REACH WILL CONTINUE TO MONITOR
[2018-09-18 12:32] VITALS: BP 146/75
--- NOTE | 2018-09-18 13:03 | NUR ---
REHAB PRESCREENING Rehab referral received and chart reviewed. Dr. Tim noted need for CT guided lung biopsy or bronchoscopy. Rehab will continue to follow this patient for completed workup. Thank you for this referral! Vicenta Weaver, CLAIM REP Rehab PD
--- NOTE | 2018-09-18 14:28 | NUR ---
PT HAD MASSIVE LOOSE BOWEL MOVEMENT CLEANED UP AT THIS TIME
[2018-09-18 17:39] VITALS: BP 147/86
--- NOTE | 2018-09-18 18:45 | NUR ---
I have reviewed this patient and I concur with the Shift Assessment completed by the Licensed Practical Nurse today this shift.
--- NOTE | 2018-09-18 19:30 | NUR ---
PT ALERT AND ORIENTED WHEN ENTERING THE ROOM. PT HAS RADHA DRAIN TO THE LEFT PORTION OF THE LOWER ABDOMEN THAT IS FILLED WITH PINK TINGED FLUID. EMPTIED AND COMPRESSED BUT DRAIN FILLED IMMEDIATELY. HAS SUPRAPUBIC CATHETER TO THE LOWER RIGHT SIDE OF THE ABDOMEN THAT HAS MODERATELY PINK URINE IN BAG. CONTINUOUS IRRIGATION INFUSING. LEFT SUBCLAVIAN THAT FLUSHES WELL. NO ISSUES NOTED. MIDLINE ABDOMINAL INCISION IS CLEAN AND DRY AND WELL APPROXIMATED WITH DAVID IN PLACE. DENIES FURTHER ISSUES AT THIS TIME. CALL LIGHT IN REACH. CPOC.
[2018-09-18 20:59] VITALS: BP 112/67
[2018-09-19 02:08] VITALS: BP 151/96
[2018-09-19 05:53] VITALS: BP 132/88
[2018-09-19 06:40] LABS: BASOPHILS 0.3 % (0-2); EOSINOPHILS 3.4 % (0-7); HEMATOCRIT 30.9 % (42.0-54.0); HEMOGLOBIN 10.2 g/dL (13.5-17.5); IMMATURE GRANULOCYTES 0.2 % (0-5); LYMPHOCYTES 12.9 % (15-50); MCH 29.4 pg (26.0-34.0); MEAN PLATELET VOLUME 9.3 fL (7.4-10.4); MONOCYTES 5.7 % (2-11); NEUTROPHILS 77.5 % (40-80); RBC 3.47 10x6/uL (4.20-6.10); RDW 13.9 % (11.5-14.5)
[2018-09-19 06:52] LABS: ALBUMIN 1.2 g/dL (3.4-5.0); ANION GAP 8.2 mmol/L (8-16); BILIRUBIN - TOTAL 0.34 mg/dL (0.2-1.3); CALCIUM 7.7 mg/dL (8.5-10.1); CARBON DIOXIDE 28.8 mmol/L (21.0-32.0); CREATININE - SERUM 1.3 mg/dL (0.6-1.3); PROTEIN - SERUM 4.4 g/dL (6.4-8.2)
[2018-09-19 06:58] LABS: PLATELET COUNT 309 10x3/uL (130-400)
[2018-09-19 09:00] VITALS: BP 151/83
--- NOTE | 2018-09-19 10:06 | NUR ---
PATIENT ASSISTED TO CHAIR BY PT. SUPRAPUBIC CATH PATENT WITH CONTINUIOUS FLUSH, PINK TINGED FLUID TO BEDSIDE DRAINAGE BAG. MIDLINE INCISION WITH NO S/S OF INFECTION, OPEN TO AIR WITH DAVID INTACT. RADHA PATENT TO RIGHT SIDE OF ABDOMEN. CL IN REACH
--- NOTE | 2018-09-19 11:08 | MORECARE ---
CASE MANAGEMENT DISCHARGE SUMMARY PATIENT: MAE MANN UNIT: [id number] ADM DATE: 09/07/18 AGE: 72 : [birth year] SEX: M ROOM/BED: D.2236 AUTHOR: HARMANDOC PHYSICIAN: REFERRING PHYSICIAN: CHELSIE MARX MD DATE OF SERVICE: 09/19/18 Discharge Plan Patient Name: MAE MANN Facility: [facility]:[place] : 1945 Planned Disposition: Home Anticipated Discharge Date: Discharge Date: Expected LOS: Initial Reviewer: [email or web address] Initial Review Date: 09/07/2018 Generated: 09/19/18 12:07 pm Comments DCP- Discharge Planning Updated by [email or web address]: Terri Adrianne on 09/19/18 10:[address] Met with patient concerning discharge plans. He states he does not want rehab or home health. I encouraged home health for catheter care and PT. He declines. He states he has had a catheter for many years and knows how to take care of it. I informed him of possibility of blood clot that home health could help with in the catheter and he states he hasn't had problems in the last couple of days. I encouraged him to have PT come out with home health and her declines. He states his is getting a walker for home use at the [facility]. I informed him that I could order that for him, he states "I don't think I'll need it more than a couple of days, and my is getting one for me." I asked if there was anything I could get or set up for him and he states "no". CM will continue to follow and assist with discharge planning/needs. DCP- Discharge Planning Updated by [email or web address]: Terri Adrianne on 09/15/18 8:[address] Received out of ICU yesterday. I met with patient and his today. They are unsure of any needs at this time. I gave them my business card and educated them on my role as store planner. I instructed them on the availability of rehab, SNF, home health and DME. Patient's states she will notify me of needs. CM will continue to follow and assist with discharge planning/needs. DCP- Discharge Planning Updated by [email or web address]: Elizabeth Sandy on 09/08/18 6:[address] Patient Name: MAE MANN Admission Status: ER Accout number: [id number] Admission Date: 09-07-2018 : 1945 Admission Diagnosis: Attending: CHELSIE MARX Current LOS: 1 Anticipated DC Date: Planned Disposition: Home Primary Insurance: MEDICARE A & B Discharge Planning Comments: CM met with patient at bedside after explaining CM role and obtaining verbal consent. Patient lives at home with his Vikki and plans to return there upon discharge. Patient feels this would be a safe discharge. CM discussed availability / needs of home health and medical equipment. Patient denies any discharge needs at this time. Patient states he will have his drive him home upon discharge. CM will continue to follow and assist as needed with discharge planning / needs. Director Of Occupational Therapy: Elizabeth Sandy DCP- Discharge Planning Updated by [email or web address]: Elizabeth Sandy on 09/07/18 4:[address] CM attempted to see patient for discharge planning but patient is currently in [place] no family available at this time. CM will continue to follow and assist as needed with discharge planning / needs. DCPIA - Discharge Planning Initial Assessment Updated by [email or web address]: Elizabeth Sandy on 09/08/18 7:14 pm * Is the patient Alert and Oriented? Yes * How many steps to enter\\exit or inside your home? * PCP FRANKY ANTONIO APN * Pharmacy [facility] * Preadmission Environment Home with Family * ADLs Independent * Equipment None * List name and contact numbers for known caregivers / representatives who currently or will assist patient after discharge: VIKKI MANN - - [phone] * Verbal permission to speak to the caregivers and representatives has been obtained from the patient. N/A * Community resources currently utilized None * Additional services required to return to the preadmission environment? No * Can the patient safely return to the preadmission environment? Yes * Has this patient been hospitalized within the prior 30 days at any hospital? No Last DP export: 09/15/18 8:35 a Patient Name: MAE MANN Page [id number] at 1108 All edits/amendments must be made on the electronic document DICTATION DATE: 09/19/181106 CONNECTION WORKER: SRINIVAS 09/19/181106 RPT#: [id number] DC DATE: STATUS: ADM IN [facility] [address] [place] [address] END OF REPORT
[2018-09-19 13:45] VITALS: BP 171/86
[2018-09-19 16:43] VITALS: BP 145/76
--- NOTE | 2018-09-19 17:15 | NUR ---
OT NOTE: PT REQUIRED EXTENSIVE CUES FOR ATTENTION TO TASK. PT COMPLETED SIMPLE GROOMING TASKS WITH KAUSHIK Vicente. PT COMPLETED POSITIONING IN BED WITH MISSY Vicente. THANK YOU, DOT PETERSON
[2018-09-19 20:00] VITALS: BP 137/78
--- NOTE | 2018-09-19 23:41 | NUR ---
REC'D AT [facility]. OF SHIFT IN BED EYES CLOSED RESP. DEEP AND EVEN, IRRIGATION VIA SUPRAPUBIC CATH CONTINUOUS DRIP.WITH DK BEBO COLORED URINE OBSERVED.RADHA DRAIN WITH LITE YELLOWISH CLOUDY DRAINAGE NOTED. WILL CONTINUE TO MONITOR FOR ANY CHGES AND FOLLOW CURRENT PLAN OF CARE.
[2018-09-20] VITALS: BP 142/76
[2018-09-20 04:00] VITALS: BP 144/81
--- NOTE | 2018-09-20 05:21 | NUR ---
I have reviewed this patient and I concur with the Shift Assessment completed by the Licensed Practical Nurse today this shift.
[2018-09-20 05:50] LABS: BASOPHILS 0.4 % (0-2); EOSINOPHILS 3.2 % (0-7); HEMATOCRIT 29.2 % (42.0-54.0); HEMOGLOBIN 9.7 g/dL (13.5-17.5); IMMATURE GRANULOCYTES 0.3 % (0-5); LYMPHOCYTES 12.9 % (15-50); MCH 29.2 pg (26.0-34.0); MCHC 33.2 g/dL (31.0-37.0); MONOCYTES 7.4 % (2-11); NEUTROPHILS 75.8 % (40-80); PLATELET COUNT 319 10x3/uL (130-400); RBC 3.32 10x6/uL (4.20-6.10); RDW 13.9 % (11.5-14.5); WBC 6.9 10x3/uL (4.8-10.8)
[2018-09-20 06:10] LABS: ALBUMIN 1.2 g/dL (3.4-5.0); ALKALINE PHOSPHATASE 91 U/L (46-116); ALT (SGPT) 18 U/L (10-68); BILIRUBIN - TOTAL 0.35 mg/dL (0.2-1.3); CALC OSMOLALITY 279 mosm/kg (275-300); CALCIUM 7.6 mg/dL (8.5-10.1); CARBON DIOXIDE 26.4 mmol/L (21.0-32.0); CHLORIDE - SERUM 108 mmol/L (98-107); GLUCOSE 93 mg/dL (74-106); POTASSIUM - SERUM 3.9 mmol/L (3.5-5.1); PROTEIN - SERUM 4.3 g/dL (6.4-8.2); SODIUM 139 mmol/L (136-145); eGFR NON AFRICAN AMERICAN 78 mL/min (90-120)
[2018-09-20 06:12] LABS: UREA NITROGEN 18 mg/dL (7-18)
--- NOTE | 2018-09-20 07:10 | NUR ---
PATIETN RESTING IN BED WITH SUPRAPUBIC CATH PATENT AND CONTINUOUS IRRIGATION GOING SLOWLY. INCREASED RATE OF IRRIGATION TO CLEAR BLOODY CLOTS UNTIL URINE HAD FAINT PINK COLOR. RADHA WITH PALE YELLOW DRAINAGE. NO OTHER NEEDS VOICED AT THIS TIME.
[2018-09-20 09:00] VITALS: BP 105/71
[2018-09-20 12:00] VITALS: BP 112/66
--- NOTE | 2018-09-20 12:10 | NUR ---
OT NOTE: PT PERFORMED VERY WELL TODAY. ALERT AND ORIENTED; SITTING UP IN BED EATING BREAKFAST WITHOUT DIFFICULTY. BED MOB WITH SPV; AMB IN ROOM WITH RW, IV, AND MIN ASSIST; ABLE TO AMB THROUGH HALLWAY TODAY GREATER THAN 150 FT WITH ASSIST WITH IV POLE, WALKER, AND MIN ASSIST. NO SOB NOTED UPON RETURN TO ROOM. MAX ASSIST TO SALVADOR AND DOFF SOCKS DUE TO ABD PAIN WHEN BENDING OVER, HOWEVER, MIN ASSIST WITH UPPER BODY DRESSING, FEEDING, AND SIMPLE GROOMING TASKS. PT TOLERATED SITTING UP IN CHAIR FOR GREATER THAN 2 HRS IN THE AM. CLINT GRAY, OTR/L
--- NOTE | 2018-09-20 16:46 | NUR ---
OT NOTE: PT EXHIBITS INCREASED ALERTNESS THIS PM. PT COMPLETED BUE AROM EXS. PT COMPLETED BED MOB TASK WITH SIDE RAILS. PT COMPLETED ORAL HYGIENE WITH SET UP. THANK YOU, DOT PETERSON
[2018-09-20 17:06] VITALS: BP 146/78
[2018-09-20 21:07] VITALS: BP 148/77
--- NOTE | 2018-09-20 22:24 | NUR ---
REC'D. IN BED WATCHING TV. STATES WALKED WIT THERAPIST THIS AM WANTS TO GO HOME.MIDLINE INCISION LEFT RADHA DRAIN LANDRUM PATENT WITH CONTINUOUS NS IRRIGATION INFUSING URINE LITE YELLOW IN COLOR NO BLOOD OBSERVED.WILL CONTINUE TO MONITOR FOR ANY CHGES AND FOLLOW CURRENT PLAN OF CARE.
[2018-09-21 01:00] VITALS: BP 131/86
[2018-09-21 05:02] VITALS: BP 158/83
[2018-09-21 06:30] LABS: BASOPHILS 0.3 % (0-2); EOSINOPHILS 3.4 % (0-7); HEMATOCRIT 28.9 % (42.0-54.0); HEMOGLOBIN 9.5 g/dL (13.5-17.5); IMMATURE GRANULOCYTES 0.2 % (0-5); LYMPHOCYTES 19.1 % (15-50); MCH 28.9 pg (26.0-34.0); MCHC 32.9 g/dL (31.0-37.0); MCV 87.8 fL (80.0-100.0); MEAN PLATELET VOLUME 9.1 fL (7.4-10.4); PLATELET COUNT 340 10x3/uL (130-400); RBC 3.29 10x6/uL (4.20-6.10); RDW 13.9 % (11.5-14.5); WBC 5.9 10x3/uL (4.8-10.8)
[2018-09-21 06:46] LABS: ALBUMIN 1.2 g/dL (3.4-5.0); ALKALINE PHOSPHATASE 94 U/L (46-116); ALT (SGPT) 18 U/L (10-68); BILIRUBIN - TOTAL 0.26 mg/dL (0.2-1.3); CALC OSMOLALITY 278 mosm/kg (275-300); CALCIUM 7.7 mg/dL (8.5-10.1); CARBON DIOXIDE 30.4 mmol/L (21.0-32.0); CHLORIDE - SERUM 109 mmol/L (98-107); GLUCOSE 89 mg/dL (74-106); PROTEIN - SERUM 4.4 g/dL (6.4-8.2); SODIUM 140 mmol/L (136-145); UREA NITROGEN 15 mg/dL (7-18); eGFR NON AFRICAN AMERICAN 78 mL/min (90-120)
--- NOTE | 2018-09-21 06:47 | NUR ---
I have reviewed this patient and I concur with the Shift Assessment completed by the Licensed Practical Nurse today this shift.
--- NOTE | 2018-09-21 07:45 | NUR ---
PATIENT UP IN CHAIR IN FRONT OF SINK. REQUESTS TO GO BACK TO BED. AMBULATES WELL. NEEDS ASSISTANCE WITH IV AND LANDRUM TUBING. CL IN REACH. DAUGHTER IN ROOM. NO FURTHER NEEDS AT THIS TIME.
[2018-09-21 09:10] VITALS: BP 147/85
[2018-09-21 13:24] VITALS: BP 126/76
--- NOTE | 2018-09-21 14:12 | NUR ---
IV THERAPY DC'ED FROM RIGHT UPPER ARM WITH TIP INTACT. DRESSING CHANGED ON PICC LINE TO LEFT CHEST. DAUGHTER HAS LEFT FOR THE EVENING. CL IN REACH. WCTM.
--- NOTE | 2018-09-21 14:26 | NUR ---
OT NOTE: PT COMPLETED BED MOB WITH SBA. PT COMPLETED ADL MOB WITH CGA TO MANAGE IV POLE. PT BALANCE WAS FAIR PLUS/GOOD MINUS EXCLUDING IV POLE MANAGEMENT. PT COMPLETED GROOMING TASKS WITH SET UP AT EOB. THANK YOU, DOT PETERSON
--- NOTE | 2018-09-21 14:29 | NUR ---
OT NOTE: PT PERFORMING WELL. ABLE TO AMB IN ROOM WITH CGA AND USE OF RW AND IV; EXT ASSIST WITH LE DRESSING; SET UP WITH FEEDING AND UE DRESSING AND SIMPLE GROOMING. PT PREVIOUSLY AMB WITH P.T GREATER THAN 100 FT. REPORTING NO PAIN. CLINT GRAY, OTR/L
--- NOTE | 2018-09-21 14:42 | NUR ---
NUTRITION F/U CHART REVIEWED, PT VISIT. CALORIE COUNT STARTED, DISCUSSED WITH PT. CONTINUES PROCALAMINE AT 40 CC/HR. RD FOLLOWING
--- NOTE | 2018-09-21 16:56 | NUR ---
PATIENT WALKED UP TO OUTPATIENT AND SAT READING MAGAZINES. ARRIVED. I SHOWED HER WHERE HE WAS. THEY WALKED BACK WITH NO PROBLEMS. AND PATIENT IN ROOM. NO NEEDS AT THIS TIME
--- NOTE | 2018-09-21 19:40 | NUR ---
REC'D. SITTING IN BEDSIDE CHAIR. AT BEDSIDE.CONTINUOUS NS IRRIGATION REMAINS IN PROGRESS.URINE LITE BEBO IN COLOR DENIES ANY DISCOMFORT AT PRESENT TIME.WILL CONTINUE TO MONITOR FOR ANY CHGES. AND FOLLOW CURRENT PLAN OF CARE.
[2018-09-21 20:00] VITALS: BP 146/77
[2018-09-22] VITALS: BP 149/82
[2018-09-22 04:00] VITALS: BP 161/75
[2018-09-22 07:29] LABS: BASOPHILS 0.1 % (0-2); EOSINOPHILS 3.3 % (0-7); HEMATOCRIT 33.1 % (42.0-54.0); HEMOGLOBIN 10.8 g/dL (13.5-17.5); IMMATURE GRANULOCYTES 0.1 % (0-5); LYMPHOCYTES 22.1 % (15-50); MCH 29.2 pg (26.0-34.0); MCHC 32.6 g/dL (31.0-37.0); MCV 89.5 fL (80.0-100.0); MEAN PLATELET VOLUME 8.8 fL (7.4-10.4); MONOCYTES 8.6 % (2-11); NEUTROPHILS 65.8 % (40-80); PLATELET COUNT 371 10x3/uL (130-400); RDW 13.9 % (11.5-14.5)
[2018-09-22 07:31] LABS: WBC 8.4 10x3/uL (4.8-10.8)
--- NOTE | 2018-09-22 07:32 | NUR ---
I have reviewed this patient and I concur with the Shift Assessment completed by the Licensed Practical Nurse today this shift.
[2018-09-22 07:44] LABS: ANION GAP 10.4 mmol/L (8-16); CALCIUM 8.4 mg/dL (8.5-10.1); CARBON DIOXIDE 29.8 mmol/L (21.0-32.0); CREATININE - SERUM 1.2 mg/dL (0.6-1.3); POTASSIUM - SERUM 4.2 mmol/L (3.5-5.1)
--- NOTE | 2018-09-22 07:53 | NUR ---
PT IS RESTING IN BED WITH EYES OPEN. RESPIRATIONS ARE EVEN AND UNLABORED. PT WITH SUPRAPUBIC CATHETER DRAINING WITHOUT DIFFICULTY. URINE IS YELLOW/LIGHT BEBO. PT WITH RADHA DRAIN TO LUQ. RADHA IS COMPRESSED AND FLUID IS SEROUS IN COLOR. PT WITH 52 NOTABLE DAVID TO ABDOMINAL MIDLINE. INCISION WITHOUT REDNESS/WARMTH. PT WITH A LOT OF QUESTIONS ABOUT POSSIBLE DISCHARGE. QUESTIONS ANSWERED. PT DENIES PRESENCE OF PAIN. PT DENIES PRESENCE OF DYSPNEA/N/V. BED IS IN THE LOWEST POSITION. CALL LIGHT AND BEDSIDE TABLE ARE WITHIN REACH. SIDE RAILS X 2. PT DENIES FURTHER NEEDS. WILL CONT TO MONITOR.
[2018-09-22 08:47] VITALS: BP 127/67
--- NOTE | 2018-09-22 11:52 | NUR ---
OT NOTE: PT AGITATED TODAY AND WANTING TO GO HOME. REFUSING BREAKFAST AND RESISTANT TO GET UP FROM BED. ABLE TO PERFORM ADLS WITH SET UP, HOWEVER, CONTINUES WITH IVS WHICH PREVENTS INDEP WITH MOBILITY. CLINT GRAY, OTR/L
--- NOTE | 2018-09-22 11:56 | NUR ---
PT RETURNS TO ROOM FROM LEAVING ROOM TO LOOK OUT OUTPATIENT WINDOWS VIA WHEELCHAIR. PT SUPRAPUBIC CATHETER CLAMPED FOR URINE COLLECTION. IRRIGATION FLUID IS CLAMPED AND NOT FLOWING PER DR MARX ORDER.
--- NOTE | 2018-09-22 12:59 | NUR ---
SUPRAPUBIC CATHETER REMAINS CLAMPED AT THIS TIME TO ATTEMPT TO COLLECT URINE FOR SAMPLE.
--- NOTE | 2018-09-22 13:49 | NUR ---
URINE COLLECTED FROM CATHETER. CATHETER IS NOW UNCLAMPED.
[2018-09-22 14:23] LABS: APPEARANCE CLEAR (CLEAR); BACTERIA FEW /hpf (NONE SEEN); BILIRUBIN NEGATIVE (NEGATIVE); COLOR YELLOW (YELLOW); EPITHELIAL CELLS RARE /hpf (0-5); GLUCOSE NEGATIVE (NEGATIVE); KETONE NEGATIVE (NEGATIVE); MUCUS <1+ /lpf (NONE SEEN); NITRITE NEGATIVE (NEGATIVE); PROTEIN TRACE mg/dL (NEGATIVE); SPECIFIC GRAVITY 1.005 (1.005-1.020); UROBILINOGEN NORMAL (NORMAL); WHITE CELLS - URINE OCC /hpf (0-5)
[2018-09-22 16:03] VITALS: BP 133/76
--- NOTE | 2018-09-22 18:48 | NUR ---
PT LEFT SUBCLAVIAN SALINE LOCKED. PER SONIA SCHRADER. SWAB CAPS ARE IN PLACE.
[2018-09-22 20:00] VITALS: BP 145/77
--- NOTE | 2018-09-22 20:00 | NUR ---
ALERT RESTING IN BED, DENIES PAIN, ABD INCISION INTACT WITH DAVID, RADHA DRAIN AND SUPRA PUBIC CATH IN PLACE, SEE SHIFT ASSESSMENT, CALL LIGHT IN REACH
[2018-09-23 04:00] VITALS: BP 108/59
[2018-09-23 06:47] LABS: ANION GAP 7.9 mmol/L (8-16); CARBON DIOXIDE 30.7 mmol/L (21.0-32.0); CREATININE - SERUM 1.1 mg/dL (0.6-1.3); POTASSIUM - SERUM 3.6 mmol/L (3.5-5.1)
[2018-09-23 07:16] LABS: BASOPHILS 0.5 % (0-2); EOSINOPHILS 2.9 % (0-7); HEMOGLOBIN 9.1 g/dL (13.5-17.5); IMMATURE GRANULOCYTES 0.2 % (0-5); LYMPHOCYTES 18.6 % (15-50); MCH 28.8 pg (26.0-34.0); MCHC 32.5 g/dL (31.0-37.0); MCV 88.6 fL (80.0-100.0); MEAN PLATELET VOLUME 9.1 fL (7.4-10.4); MONOCYTES 10.3 % (2-11); NEUTROPHILS 67.5 % (40-80); PLATELET COUNT 331 10x3/uL (130-400); RBC 3.16 10x6/uL (4.20-6.10)
[2018-09-23 07:21] LABS: WBC 5.6 10x3/uL (4.8-10.8)
--- NOTE | 2018-09-23 07:47 | NUR ---
CALORIE COUNT 09/22/18 KCALGM PROTEIN [id number]
[2018-09-23 08:29] VITALS: BP 162/86
--- NOTE | 2018-09-23 12:39 | NUR ---
OT NOTE: PT SLEEPING IN AM. STATED THAT WHEN THE ABD TUBES MOVE AROUND, IT CAUSES PAIN AND HE JUST WANTS TO LIE STILL. REPORTED THAT HE HAD BEEN UP TO BATHROOM WITHOUT ASSIST EARLIER. ASKED PT IF HE WANTED TO GET UP TO CHAIR, HE STATED NOT AT THIS TIME HE WAS VERY SLEEPY. REPORTS THAT HE WILL BE GOING HOME TODAY. CLINT GRAY, OTR/L
[2018-09-23 13:32] VITALS: BP 129/68
--- NOTE | 2018-09-23 14:47 | NUR ---
PATIENT WANTS TO GO HOME. WAITING ON CR LEVEL IN RADHA DRAIN TO SEE IF IT CAN BE PULLED OR NOT. CL IN REACH. WCTM
[2018-09-23] MEDS ORDERED: FLOMAX0.4 MG PO (16:54)
[2018-09-23] MEDS ORDERED: CATAPRES TTS-10.1 MG TRANSDERM (16:55)
[2018-09-23] MEDS ORDERED: MIRALAX17 GM PO (16:55)
--- NOTE | 2018-09-23 17:09 | NUR ---
REPORTED FLUID CREATININE LEVEL AT 1.11. DR ROBERTSON SAID TO REMOVE RADHA DRAIN AND OK TO DC FROM HIS STAND POINT. WILL NOTIFY DR MARX
[2018-09-23 18:19] VITALS: BP 120/63
--- NOTE | 2018-09-24 08:14 | NUR ---
OT NOTE: (DOS 09/23/18) PT COMPLETED GROOMING TASKS WITH SET UP IN BED. PT COMPLETED POSITIONIG WITH SBA. PT HAS MILD/MODERATE PAIN AND REQUESTED TO STAY IN BED. THANK DOT PETERSON
--- NOTE | 2018-09-26 16:33 | PN ---
PATIENT:MAE MARIE MEDICAL RECORD: [id number] LOCATION:[facility] ADMISSION DATE: 09/07/18 PROGRESS NOTE DATE OF SERVICE: 09/23/2018 I had a lengthy conversation with Mr. Marie today. The conversation was witnessed in the presence of a nurse. The patient and his have occasionally stated that no one has been telling them anything and they do not know what the plan is. I was going to actually list for him on a piece of paper the topics that we have been discussing with him and have him initial these individual statements or have him sign the entire statement. After my discussion with him today, I was satisfied that indeed he does know what is going on and that he is able to make decisions for himself. I asked him if he had a malignancy and he stated that he does. I asked him where it was, he said it was in his liver, lung and in his intestines. 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 I asked him again if he would undergo a lung biopsy or colonoscopy and he stated that he would not. He states that he is only getting weaker and weaker in the hospital and that he needs to go home to get some strength back. I told him I understand his desire to leave the hospital; however, if we do not make it definitive diagnosis the source of the malignancy then this could result in delay of care and would increase the chance that he would of the malignancies. Additionally it could shorten his life. He states that he is aware of this. He complains that the suprapubic catheter was causing discomfort. He states it is the way it is positioned. I gave him some advice about how he can reposition it, so that it does not lay against him, but instead sticks out and he can do this at home just by placing a towel underneath one side of the suprapubic catheter. He has a good healing ridge at the midline incision and I am going to have half of the mee removed before he is dismissed home. We are going to obtain a creatinine on the fluid in the closed suction drain. If it is normal, that would indicate that fluid being aspirated through the drainage system is not urine and that the tube could be safely removed. I would like for him to follow up with Dr. Rico in the office in a week. The patient states that when he does feel better, he will undergo colonoscopy. He states that he is willing to accept the risk of not knowing where the primary malignancy is. TRANSINT:[id number] Voice Confirmation ID: [id number] DOCUMENT ID: [id number] PROGRESS NOTE [id number] MAE MARIE, SYLVIA ROJAS at 1633 CC: [id number] DICTATION DATE: 09/23/[address] WORKER: 09/23/18 1827 DIS IN 09/23/18 [facility] [address] [place] [address]
== END 2018-09-23 20:01 | disposition home or self-care (01) | DRG 853 ==
LOC: D.ER 06:12 → D.ICU 09:24 → D.MS 09-14 16:43
PROVIDERS: Family Medicine; Internal Medicine Hematology & Oncology; Surgery; Urology; ADMIT Internal Medicine Nephrology; ATTEND Internal Medicine Nephrology
PROC: 0TCB8ZZ Extirpation of Matter from Bladder, Via Natural or Artificial Opening Endoscopic (ICD-10-PCS; principal; 2018-09-07 12:00)
PROC: 0DTU0ZZ Resection of Omentum, Open Approach (ICD-10-PCS; 2018-09-09 09:00)
PROC: 0FB10ZX Excision of Right Lobe Liver, Open Approach, Diagnostic (ICD-10-PCS; 2018-09-09 09:00)
PROC: 0VB00ZX Excision of Prostate, Open Approach, Diagnostic (ICD-10-PCS; 2018-09-09 09:00)
PROC: 0TCB0ZZ Extirpation of Matter from Bladder, Open Approach (ICD-10-PCS; 2018-09-09 09:00)
DX: A41.9 Sepsis, unspecified organism (principal); J95.821 Acute postprocedural respiratory failure; E43 Unspecified severe protein-calorie malnutrition; D62 Acute posthemorrhagic anemia; F17.203 Nicotine dependence unspecified, with withdrawal; N17.9 Acute kidney failure, unspecified; N39.0 Urinary tract infection, site not specified; N13.30 Unspecified hydronephrosis; C78.7 Secondary malignant neoplasm of liver and intrahepatic bile duct; J98.11 Atelectasis; R68.0 Hypothermia, not associated with low environmental temperature; N32.0 Bladder-neck obstruction; R31.0 Gross hematuria; R33.9 Retention of urine, unspecified; N40.0 Benign prostatic hyperplasia without lower urinary tract symptoms; C61 Malignant neoplasm of prostate; R53.81 Other malaise; J44.9 Chronic obstructive pulmonary disease, unspecified